=== PATIENT | male | born 1955 | race Caucasian/White ===

== ENCOUNTER 2016-09-05 04:12 | Inpatient (IN) | payer BC ==
[~2016-09-05] VITALS: Ht 182.9 cm; Wt 120.1 kg
[~2016-09-05 04:12] MED LIST: AMLO-114 PO; CARV6.252 PO; GABA-113 PO; INSUINJ4 SQ; LISI40TA PO; MULT-506 PO; OMEG10007 PO; ROSU20TA PO; TRAM-10 PO
[2016-09-05] MEDS ORDERED: LABETALOL HCL IV 5 MG/ML 20ML IV STA (04:20)
--- NOTE | 2016-09-05 04:26 | EMERGENCY ROOM VISIT NOTE ---
History Report prepared by Luis: Suzie Valera Under the Supervision of: Dr. Ap Ly M.D. First contact with patient: 04:14 Stated Complaint: SHORTNESS OF BREATH History of Present Illness The patient is a 61 year old male who presents to the Emergency Room with complaints of persistent shortness of breath that began prior to arrival. The patient states that he woke this morning with shortness of breath. He additionally associates chest pressure with his symptoms today. The patient states that over the last several months he has been experiencing increased bilateral lower extremity swelling. He states that when his symptoms began this morning he began pacing around. The patient states that he did not feel better so he called EMS. Upon arrival, EMS reports that the patient was diaphoretic, short of breath, and hypoxic. EMS reports that the patient was given aspirin, nitroglycerin and placed on oxygen which gave him complete resolution of his symptoms. The patient notes that he recently lost weight. He denies any increased abdominal distension. EMS reports a low-grade fever of 99.3 degrees Fahrenheit. The patient denies any alcohol consumption. Source of History: patient, EMS Onset: prior to arrival Position: other (global) Quality: other (shortness of breath) Timing: other (persistent) Modifying Factors (Relieving): oxygen, other (aspirin, nitroglycerin) Associated Symptoms: + chest pain (pressure), + fevers Note: Associated Symptoms: hypoxic, increased bilatearl lower extremity swelling Review of Systems See HPI for pertinent positives & negatives. A total of 10 systems reviewed and were otherwise negative. Past Medical & Surgical Medical Problems: (1) Staphylococcal infectious disease Family History Diabetes mellitus Social History Smoking Status: Never Smoker Marital Status: Housing Status: lives with significant other Occupation Status: employed Current/Historical Medications Scheduled Amlodipine (Norvasc), 10 MG PO QAM Aspirin (Aspirin Chewable), 81 MG PO QAM Carvedilol (Coreg), 25 MG PO BID Chlorthalidone (Hygroton), 25 MG PO DAILY Insulin Glargine (Lantus), 40 UNITS SC AMPM Insulin Lispro (Human) (Humalog Kwikpen), 6-8 UNITS SQ AMPM Lisinopril (Zestril), 40 MG PO QAM Scheduled PRN Tramadol (Ultram), 100 MG PO TID PRN for Pain Allergies Coded Allergies: No Known Allergies (Unverified , 09/05/16) Physical Exam Vital Signs Date Time Temp Pulse Resp B/P Pulse Ox O2 Delivery O2 Flow Rate FiO2 09/05/16 04:46 66 22 166/64 96 Nasal Cannula 2.0 09/05/16 04:41 81 09/05/16 04:32 78 17 182/70 99 Nasal Cannula 2.0 09/05/16 04:17 36.9 79 20 200/89 99 Nasal Cannula 2.0 09/05/16 04:17 91 Room Air 09/05/16 04:17 97 Nasal Cannula 2.0 Physical Exam GENERAL: Patient is well appearing and in minimal distress. HEENT: No acute trauma, normocephalic atraumatic, mucous membranes moist, no nasal congestion, no scleral icterus. NECK: No stridor, no adenopathy, no meningismus, trachea is midline. LUNGS: Decreased breath sounds bilaterally. No dyspnea. No wheeze, no rhonchi. HEART: Regular rate and rhythm. No murmurs, rubs, gallops appreciated. ABDOMEN: Soft, nontender, bowel sounds positive, no masses appreciated, no peritonitis. BACK: No midline tenderness, no CVA tenderness EXTREMITIES: 3+ pitting edema bilateral lower legs. Normal motion all extremities, no cyanosis. NEUROLOGIC: Alert and oriented, no acute motor or sensory deficits, no focal weakness, cranial nerves grossly intact. SKIN: No rash, no jaundice, no diaphoresis. Medical Decision & Procedures ER Provider Diagnostic Interpretation: 1 view chest x-ray: diffuse pulmonary edema. Laboratory Results 09/05/16 04:20 Red Blood Count 4.17, Mean Corpuscular Volume 98.1, Mean Corpuscular Hemoglobin 32.1, Mean Corpuscular Hemoglobin Concent 32.8, Mean Platelet Volume 9.6, Neutrophils (%) (Auto) 76.8, Lymphocytes (%) (Auto) 9.9, Monocytes (%) (Auto) 7.3, Eosinophils (%) (Auto) 5.7, Basophils (%) (Auto) 0.2, Neutrophils # (Auto) 10.26, Lymphocytes # (Auto) 1.32, Monocytes # (Auto) 0.98, Eosinophils # (Auto) 0.76, Basophils # (Auto) 0.03 09/05/16 04:20 Test 09/05/16 04:20 09/05/16 05:00 09/05/16 05:11 White Blood Count 13.37 K/uL (4.8-10.8) Red Blood Count 4.17 M/uL (4.7-6.1) Hemoglobin 13.4 g/dL (14.0-18.0) Hematocrit 40.9 % (42-52) Mean Corpuscular Volume 98.1 fL (80-100) Mean Corpuscular Hemoglobin 32.1 pg (25-34) Mean Corpuscular Hemoglobin Concent 32.8 g/dl (32-36) Platelet Count 388 K/uL (130-400) Mean Platelet Volume 9.6 fL (7.4-10.4) Neutrophils (%) (Auto) 76.8 % Lymphocytes (%) (Auto) 9.9 % Monocytes (%) (Auto) 7.3 % Eosinophils (%) (Auto) 5.7 % Basophils (%) (Auto) 0.2 % Neutrophils # (Auto) 10.26 K/uL (1.4-6.5) Lymphocytes # (Auto) 1.32 K/uL (1.2-3.4) Monocytes # (Auto) 0.98 K/uL (0.11-0.59) Eosinophils # (Auto) 0.76 K/uL (0-0.5) Basophils # (Auto) 0.03 K/uL (0-0.2) RDW Standard Deviation 49.5 fL (36.4-46.3) RDW Coefficient of Variation 13.9 % (11.5-14.5) Immature Granulocyte % (Auto) 0.1 % Immature Granulocyte # (Auto) 0.02 K/uL (0.00-0.02) Red Blood Cell Morphology Unremarkable Prothrombin Time 10.0 SECONDS (9.0-12.0) Prothromb Time International Ratio 0.9 (0.9-1.1) Activated Partial Thromboplast Time 27.4 SECONDS (21.0-31.0) Partial Thromboplastin Ratio 1.1 Est Creatinine Clear Calc Drug Dose 45.7 ml/min Estimated GFR () 34.0 Estimated GFR (Non- 29.3 BUN/Creatinine Ratio 17.6 (10-20) Calcium Level 8.7 mg/dl (8.5-10.1) Total Creatine Kinase 156 U/L (39-308) Creatine Kinase MB 1.9 ng/ml (0.5-3.6) Creatine Kinase MB Ratio 1.2 (0-3.0) Troponin I < 0.015 ng/ml (0-0.045) Pro-B-Type Natriuretic Peptide 1607 pg/ml (0-900) Urine Color YELLOW Urine Appearance CLEAR (CLEAR) Urine pH 6.0 (4.5-7.5) Urine Specific [place] 1.015 (1.000-1.030) Urine Protein 3+ (NEG) Urine Glucose (UA) TRACE (NEG) Urine Ketones NEG (NEG) Urine Occult Blood TRACE (NEG) Urine Nitrite NEG (NEG) Urine Bilirubin NEG (NEG) Urine Urobilinogen NEG (NEG) Urine Leukocyte Esterase NEG (NEG) Urine WBC (Auto) 1-5 /hpf (0-5) Urine RBC (Auto) 0-4 /hpf (0-4) Urine Hyaline Casts (Auto) 1-5 /lpf (0-5) Urine Epithelial Cells (Auto) 20-30 /lpf (0-5) Urine Bacteria (Auto) NEG (NEG) Bedside Hemoglobin 13.3 g/dl (14.0-18.0) Bedside Hematocrit 39 % (42-52) Bedside Sodium 141 mEq/L (135-144) Bedside Potassium 7.6 mEq/L (3.3-5.0) Bedside Chloride 117 mEq/L (101-112) Bedside Total CO2 17 mEq/l (24-31) Anion Gap 16.0 mmol/L (16-25) Bedside Blood Urea Nitrogen 39 mg/dl (7-18) Bedside Creatinine 2.0 mg/dl (0.6-1.3) Bedside Glucose (other) 146 mg/dl (70-99) Bedside Ionized Calcium (Toma) 1.19 mmol/l (1.12-1.32) Laboratory results as reviewed by me. Medications Administered Medications (Trade) Dose Ordered Sig/Kushal Route Start Time Stop Time Status Last Admin Dose Admin Labetalol HCl (Normodyne IV) 10 mg NOW STAT IV 09/05/16 04:20 09/05/16 04:22 DC 09/05/16 04:33 10 MG Nitroglycerin (Nitroglycerin 2% Oint) 1 inch NOW ONCE EXT 09/05/16 04:45 09/05/16 04:46 DC 09/05/16 05:02 1 INCH Dextrose (Dextrose 50% 50ML Syringe) 50 ml NOW STAT IV 09/05/16 05:10 09/05/16 05:14 DC 09/05/16 05:31 50 ML Sodium Bicarbonate (Sodium Bicarbonate 8.4% Inj) 50 ml NOW STAT IV 09/05/16 05:10 09/05/16 05:14 DC 09/05/16 05:30 50 ML Calcium Gluconate (Calcium Gluconate 10%) 1,000 mg NOW STAT IV 09/05/16 05:10 09/05/16 05:14 DC 09/05/16 05:30 1,000 MG Sodium Polystyrene Sulfonate (Kayexalate Susp) 30 gm NOW STAT PO 09/05/16 05:10 09/05/16 05:14 DC 09/05/16 05:32 30 GM ECG Indication: SOB/dyspnea Rate (beats per minute): 83 Rhythm: normal sinus Findings: peaked T-waves, no acute ischemic change, no ectopy ED Course 0415: The patient was evaluated in room A3. A complete history and physical exam was performed. 0420: Ordered Labetalol HCl 10 mg IV. 0445: Ordered Nitroglycerin 1 inch EXT. 0450: I reevaluated the patient and he is feeling better and his blood pressure is 160 mmHg. 0510: I reevaluated the patient and he is feeling well. I discussed the exam findings with him and I discussed the treatment plan. He verbalized complete understanding and agreement. He is going to be evaluated for further treatment. Ordered Kayexalate Susp 30 gm PO, Calcium Gluconate 1000 mg IV, Sodium Bicarbonate 50 ml IV, Insulin Human Regular 10 units IV, Dextrose 50 ml IV. 0519: I discussed the patients case with Dr. Monaco [facility]. He is going to evaluate the patient for further treatment. Ordered Lasix Inj 80 mg IV. Medical Decision Differential: Infectious, Reactive Airway Disease, Pneumonia, Pneumothorax, COPD , CHF, ACS, Pulmonary Embolism, MSK, GI, Dissection, amongst other etiologies entertained. 61 yr old male with history of DM and HTN arrives for evaluation of CP and SHOB. EMS note he was sating in 70s, diaphoretic and severely ill appearing with confusion on their arrival. Symptoms rapidly improved with ASA, SLNTG, and NC O2. On arrival without any complaints. Severely HTN thus given Labetalol with excellent improvement. EKG consistent with HyperKalemia and labs comfirm this. Mild renal failure from baseline. CXR consistent with early pulm edema. Given insulin, dextrose, bicarb, calcium and kayelalate for hyperK. Started Nitro paste for pulm edema given how well single SLNTG worked for EMS. After discussion with hospitalist 80 mg IV Lasix was ordered. I discussed the risks of worsening condition, conversion to severe renal failure, possibility of need for dialysis, and risks of cardiac arrhythmias with patient and and they agree to aggressive treatment. Patient with reported low grade fever by EMS though here with normal temp, no wbc elevation and CXR without obvious infiltrate under pulm edema. UA clear. Does have sinus congestion but will hold on treating this in setting of other emergent issues. Consults Time Called: [phone] Consulting Physician: JUAQUIN James Returned Call: [phone] I discussed the patients case with JUAQUIN James. He is going to evaluate the patient for further treatment. Impression Primary Impression: Hyperkalemia Additional Impressions: Acute renal failure Pulmonary edema Scribe Attestation The scribe's documentation has been prepared under my direction and personally reviewed by me in its entirety. I confirm that the note above accurately reflects all work, treatment, procedures, and medical decision making performed by me. Departure Information Dispostion Being Evaluated By Hospitalist Referrals Ana Paula Mccollum DO (PCP) Problem Qualifiers Additional Impressions: Acute renal failure Acute renal failure type: unspecified Qualified Codes: N17.9 - Acute kidney failure, unspecified Pulmonary edema Chronicity: acute Qualified Codes: J81.0 - Acute pulmonary edema
[2016-09-05 04:30] LABS: HEMATOCRIT 40.9 % (42-52); MEAN CELL VOLUME 98.1 fL (80-100); MEAN CORPUSCULAR HEMOGLOBIN 32.1 pg (25-34); MEAN CORPUSCULAR HGB CONC 32.8 g/dl (32-36); MEAN PLATELET VOLUME 9.6 fL (7.4-10.4); PLATELET COUNT 388 K/uL (130-400); RED BLOOD COUNT 4.17 M/uL (4.7-6.1); WHITE BLOOD COUNT 13.37 K/uL (4.8-10.8)
[2016-09-05] MEDS ORDERED: HYG/25 PO (04:42)
[2016-09-05] MEDS ORDERED: NITROGLYCERIN OINT 2% 1GM PACKET EXT ONE (04:45)
[2016-09-05 04:46] LABS: INR 0.9 (0.9-1.1); PARTIAL THROMBOPLASTIN RATIO 1.1
[2016-09-05 05:06] LABS: BLOOD UREA NITROGEN 41 mg/dl (7-18); BUN/CREATININE RATIO 17.6 (10-20); CALCIUM 8.7 mg/dl (8.5-10.1); CARBON DIOXIDE 23 mmol/L (21-32); CHLORIDE 115 mmol/L (98-107); CKMB/CK RATIO 1.2 (0-3.0); GLUCOSE 132 mg/dl (70-99); POTASSIUM 6.9 mmol/L (3.5-5.1); SODIUM 143 mmol/L (136-145)
[2016-09-05] MEDS ORDERED: SODIUM BICARB 8.4% INJ 50 MEQ/50 ML SYR IV STA (05:10)
[2016-09-05] MEDS ORDERED: DEXTROSE 50% 50 ML SYR IV STA (05:10)
[2016-09-05] MEDS ORDERED: SODIUM POLYST. SULF SUSP 15G/60ML PO STA ×2 (05:10→16:38)
[2016-09-05] MEDS ORDERED: CALCIUM GLUCONATE 10% 10 ML VIAL IV STA (05:10)
[2016-09-05] MEDS ORDERED: NovoLIN-R INSULIN PER UNIT CHARGE IV STA (05:10)
[2016-09-05 05:18] LABS: URINE APPEARANCE CLEAR (CLEAR); URINE BILIRUBIN NEG (NEG); URINE COLOR YELLOW; URINE EPITHELIAL CELL AUTO 20-30 /lpf (0-5); URINE NITRITE NEG (NEG); URINE SPECIFIC GRAVITY 1.015 (1.000-1.030); UROBILINOGEN NEG (NEG); ZZUR CULT IF INDIC CLEAN CATCH NO
[2016-09-05] MEDS ORDERED: FUROSEMIDE 40 MG/4 ML VIAL IV STA (05:19)
[2016-09-05 05:20] LABS: MANUAL MICROSCOPIC REQUIRED? NO; REVIEW REQ? NO
[2016-09-05 05:20] LABS: BASO % 0.2 %; BASO ABS # 0.03 K/uL (0-0.2); COMPLETE YES; EOS % 5.7 %; IG% 0.1 %; LYMPH % 9.9 %; LYMPH ABS # 1.32 K/uL (1.2-3.4); MONO % 7.3 %; NEUT % 76.8 %
[2016-09-05 05:24] LABS: ISTAT HEMOGLOBIN 13.3 g/dl (14.0-18.0); ISTAT IONIZED CALCIUM 1.19 mmol/l (1.12-1.32)
[2016-09-05] MEDS ORDERED: HydrALAZINE HCL 20 MG/ML VIAL IV. STA (06:07)
[2016-09-05] MEDS ORDERED: MAGNESIUM HYDROXIDE SUSP 30 ML UDC PO PRN (06:15)
[2016-09-05] MEDS ORDERED: ACETAMINOPHEN 325 MG TAB PO PRN (06:15)
[2016-09-05] MEDS ORDERED: NITROGLYCERIN 0.4 MG SL PER TAB CHARGE SL PRN (06:15)
[2016-09-05] MEDS ORDERED: ONDANSETRON INJ 2 MG/ML 2 ML VIAL IV PRN (06:15)
[2016-09-05] MEDS ORDERED: ALUMINUM/MAGNESIUM/SIMETH (MAALOX MAX) 30 ML UDC PO PRN (06:15)
[2016-09-05] MEDS ORDERED: TRAMADOL HCL 50 MG TAB PO PRN (06:15)
--- NOTE | 2016-09-05 06:34 | History and Physical ---
History & Physical Date & Time of Service: Sep 05, 2016 at 06:11 Chief Complaint: Shortness Of Breath Primary Care Physician: Ana Paula Mccollum DO History of Present Illness Source: patient, family 61-year-old male with past medical history of hypertension, diabetes presented to the ER with complaints of persistent shortness of breath which woke him up this morning. He continued to feel short of breath associated with some chest pressure but denied any palpitations or dizziness. EMS was called after he became diaphoretic with worsening shortness of breath and after administration of aspirin and nitroglycerin he began to feel better. He had noticed that he had increased bilateral lower extremity swelling that started a few weeks ago and also had noticed increase work of breathing while walking uphill. He denied any orthopnea, proximal nocturnal dyspnea, cough prior to this episode. He also stated that he had uncontrolled blood pressure more than 220/150 a few weeks ago and he had visited his PCP who added chlorthalidone to his regimen of amlodipine, lisinopril, carvedilol. Denies any headaches, weakness, numbness or tingling. Currently denies any shortness of breath, palpitations. He denies any history of heart disease, alcohol abuse, he did have a fever earlier this week with URI symptoms. Past Medical/Surgical History Hypertension, diabetes Family History Diabetes mellitus Social History Smoking Status: Never Smoker Smokeless Tobacco Use: Yes (chews about a can per day) Marital Status: Occupational Status: employed Immunizations History of Influenza Vaccine: Yes History of Tetanus Vaccine?: Unknown History of Pneumococcal: Yes History of Hepatitis B Vaccine: Unknown Allergies Coded Allergies: No Known Allergies (Unverified , 09/05/16) Home Medications Scheduled Amlodipine (Norvasc), 10 MG PO QAM Aspirin (Aspirin Chewable), 81 MG PO QAM Carvedilol (Coreg), 25 MG PO BID Chlorthalidone (Hygroton), 25 MG PO DAILY Insulin Glargine (Lantus), 40 UNITS SC AMPM Insulin Lispro (Human) (Humalog Kwikpen), 6-8 UNITS SQ AMPM Lisinopril (Zestril), 40 MG PO QAM Scheduled PRN Tramadol (Ultram), 100 MG PO TID PRN for Pain Physical Exam Vital Signs Date Time Temp Pulse Resp B/P Pulse Ox O2 Delivery O2 Flow Rate FiO2 4/17/17 04:46 66 22 166/64 96 Nasal Cannula 2.0 09/05/16 04:41 81 09/05/16 04:32 78 17 182/70 99 Nasal Cannula 2.0 09/05/16 04:17 36.9 79 20 200/89 99 Nasal Cannula 2.0 09/05/16 04:17 91 Room Air 09/05/16 04:17 97 Nasal Cannula 2.0 General Appearance: WD/WN, no apparent distress, + obese Head: normocephalic Eyes: normal inspection ENT: normal ENT inspection, hearing grossly normal Neck: supple Respiratory/Chest: chest non-tender, no respiratory distress, no accessory muscle use, + crackles (bilaterally) Cardiovascular: regular rate, rhythm, no murmur Abdomen/GI: normal bowel sounds, non tender, soft Extremities/Musculoskelatal: + pedal edema (3+) Neurologic/Psych: alert, normal mood/affect, oriented x 3 Skin: normal color Diagnostics Laboratory Results Results Past 24 Hours Test 09/05/16 04:20 09/05/16 05:00 09/05/16 05:11 Range/Units White Blood Count 13.37 4.8-10.8 K/uL Red Blood Count 4.17 4.7-6.1 M/uL Hemoglobin 13.4 14.0-18.0 g/dL Hematocrit 40.9 42-52 % Mean Corpuscular Volume 98.1 80-100 fL Mean Corpuscular Hemoglobin 32.1 25-34 pg Mean Corpuscular Hemoglobin Concent 32.8 32-36 g/dl Platelet Count 388 130-400 K/uL Mean Platelet Volume 9.6 7.4-10.4 fL Neutrophils (%) (Auto) 76.8 % Lymphocytes (%) (Auto) 9.9 % Monocytes (%) (Auto) 7.3 % Eosinophils (%) (Auto) 5.7 % Basophils (%) (Auto) 0.2 % Neutrophils # (Auto) 10.26 1.4-6.5 K/uL Lymphocytes # (Auto) 1.32 1.2-3.4 K/uL Monocytes # (Auto) 0.98 0.11-0.59 K/uL Eosinophils # (Auto) 0.76 0-0.5 K/uL Basophils # (Auto) 0.03 0-0.2 K/uL RDW Standard Deviation 49.5 36.4-46.3 fL RDW Coefficient of Variation 13.9 11.5-14.5 % Immature Granulocyte % (Auto) 0.1 % Immature Granulocyte # (Auto) 0.02 0.00-0.02 K/uL Red Blood Cell Morphology Unremarkable Prothrombin Time 10.0 9.0-12.0 SECONDS Prothromb Time International Ratio 0.9 0.9-1.1 Activated Partial Thromboplast Time 27.4 21.0-31.0 SECONDS Partial Thromboplastin Ratio 1.1 Sodium Level 143 136-145 mmol/L Potassium Level 6.9 3.5-5.1 mmol/L Chloride Level 115 98-107 mmol/L Carbon Dioxide Level 23 21-32 mmol/L Anion Gap 5.0 16.0 16-25 mmol/L Blood Urea Nitrogen 41 7-18 mg/dl Creatinine 2.30 0.60-1.40 mg/dl Est Creatinine Clear Calc Drug Dose 45.7 ml/min Estimated GFR () 34.0 Estimated GFR (Non- 29.3 BUN/Creatinine Ratio 17.6 10-20 Random Glucose 132 70-99 mg/dl Calcium Level 8.7 8.5-10.1 mg/dl Total Creatine Kinase 156 39-308 U/L Creatine Kinase MB 1.9 0.5-3.6 ng/ml Creatine Kinase MB Ratio 1.2 0-3.0 Troponin I < 0.015 0-0.045 ng/ml Pro-B-Type Natriuretic Peptide 1607 0-900 pg/ml Urine Color YELLOW Urine Appearance CLEAR CLEAR Urine pH 6.0 4.5-7.5 Urine Specific [place] 1.015 1.000-1.030 Urine Protein 3+ NEG Urine Glucose (UA) TRACE NEG Urine Ketones NEG NEG Urine Occult Blood TRACE NEG Urine Nitrite NEG NEG Urine Bilirubin NEG NEG Urine Urobilinogen NEG NEG Urine Leukocyte Esterase NEG NEG Urine WBC (Auto) 1-5 0-5 /hpf Urine RBC (Auto) 0-4 0-4 /hpf Urine Hyaline Casts (Auto) 1-5 0-5 /lpf Urine Epithelial Cells (Auto) 20-30 0-5 /lpf Urine Bacteria (Auto) NEG NEG Bedside Hemoglobin 13.3 14.0-18.0 g/dl Bedside Hematocrit 39 42-52 % Bedside Sodium 141 135-144 mEq/L Bedside Potassium 7.6 3.3-5.0 mEq/L Bedside Chloride 117 101-112 mEq/L Bedside Total CO2 17 24-31 mEq/l Bedside Blood Urea Nitrogen 39 7-18 mg/dl Bedside Creatinine 2.0 0.6-1.3 mg/dl Bedside Glucose (other) 146 70-99 mg/dl Bedside Ionized Calcium (Toma) 1.19 1.12-1.32 mmol/l Diagnostic Radiology Chest x-ray: Diffuse pulmonary edema EKG Normal sinus rhythm, Peaked T waves Impression Assessment and Plan Documented By: Viktor Monaco 61-year-old male with past medical history of hypertension, diabetes presented to the ER with complaints of persistent shortness of breath which woke him up this morning. He has no prior history of CHF, coronary artery disease but has been having issues with uncontrolled hypertension . Hyperkalemia: - EKG: Normal sinus rhythm with peaked T waves - Potassium on presentation 6.8, on repeat check 7.6 - Received calcium gluconate, regular insulin with dextrose, Kayexalate, 80 mg IV Lasix, sodium bicarbonate in the ER -Recheck potassium/PRP in 30 minutes - Low potassium diet - CK ordered Monitor in telemetry New onset CHF: - Chest x-ray: Diffuse pulmonary edema - BNP 1600 - Strict I's and O's - Daily weights - Echo ordered - Cardiology consult Hypertensive urgency: - Blood pressure on presentation 200/89 - Received 10 mg of IV labetalol - 10 mg hydralazine - Restart Norvasc, carvedilol. Hold lisinopril, chlorthalidone Diabetes: - Hold home insulin - Sliding-scale insulin MARK: - Creatinine on presentation at 2.3 - Likely secondary to decreased perfusion - Monitor creatinine DVT prophylaxis heparin subcutaneous Full code Disposition: Admitted to telemetry, monitor K levels Resident Physician Supervision Note: I was present with [Name of resident] during the history and exam. I discussed the case with the resident and agree with the findings and plan as documented in the note. Any exceptions or clarifications are listed here: 61 y/o M presenting with SOB and was initially confused when found by EMS - HTN with a systolic pressure of 225, pulmonary edema and ARF, hyperkalemia noted on arrival to the ER - denies Hx of any of above Improved following treatment in the ER OE AAO x 3 S1,2 R decreased air at bases Distended abd , NT , BS+ + edema peaked Ts on EKG P: Treated emergently for hyperK in ER - includes Kyexelate and Lasix Lasix provided or pulm edema BP treated w/NTG , Hydralazine, Lasix Echo and repeat labs pending Level of Care Telemetry Resuscitation Status FULL RESUSCITATION VTE Prophylaxis VTE Risk Assessment Done? Y/N: Yes Risk Level: Moderate Given or contraindicated: Unfractionated heparin SQ Resident Tracking Resident Involvement: Resident Care Provided Care Provided: Adult Hospital Medicine
[2016-09-05 07:00] VITALS: BP 166/99; PULSE 81; TEMP 36.5; O2SAT 94; BMI 37.7
[2016-09-05] MEDS ORDERED: HydrALAZINE HCL 20 MG/ML VIAL IV. PRN (07:00)
--- NOTE | 2016-09-05 07:00 | DIAGNOSTIC IMAGING REPORT ---
CHEST ONE VIEW PORTABLE CLINICAL HISTORY: Chest Pain dyspnea COMPARISON STUDY: 09/27/2012 FINDINGS: Increased prominence of pulmonary vasculature. No focal infiltrate. Mild stable cardiomegaly. Prior right shoulder arthroplasty. IMPRESSION: Mild congestive failure Electronically signed by: Tj Paris M.D. 09/05/2016 6:58 AM Dictated Date/Time: 09/05/2016 6:56 AM
[2016-09-05] MEDS ORDERED: GLUCOSE 40% GEL 15 GM TUBE PO PRN (07:15)
[2016-09-05] MEDS ORDERED: GLUCOSE 10 TABS/TUBE PO PRN (07:15)
[2016-09-05] MEDS ORDERED: GLUCAGON FOR INJ 1 MG VIAL SQ PRN (07:15)
[2016-09-05] MEDS ORDERED: DEXTROSE 50% 50 ML SYR IV PRN (07:15)
[2016-09-05] MEDS: INSULIN ASPART 100 UNITS/ML 3 ML PEN SC SCH ×4 (07:41→20:28)
[2016-09-05 08:18] LABS: BUN/CREATININE RATIO 17.5 (10-20); CALCIUM 9.3 mg/dl (8.5-10.1); CREATININE 2.3 mg/dl (0.60-1.40); MAGNESIUM 2.4 mg/dl (1.8-2.4); POTASSIUM 6.3 mmol/L (3.5-5.1)
[2016-09-05] MEDS: ASPIRIN 81 MG ECTAB PO SCH (08:21)
[2016-09-05] MEDS: AMLODIPINE BESYLATE 5 MG TAB PO SCH (08:21)
[2016-09-05] MEDS: CARVEDILOL 25 MG TAB PO SCH ×2 (08:21→20:29)
[2016-09-05] MEDS: HEPARIN SOD 5000 UNIT/0.5 ML CARP SQ SCH ×2 (08:22→20:31)
[2016-09-05] MEDS: NITROGLYCERIN OINT 2% 1GM PACKET EXT SCH ×3 (08:22→21:16)
--- NOTE | 2016-09-05 10:51 | ECHOCARDIOGRAM REPORT ---
*NOTICE TO RECEIVING DEMOCRAT AGENCY This information is strictly Confidential and protected under [place] law. [place] law prohibits you from making any further disclosure of this information unless further disclosure is expressly permitted by the written consent of the person to whom it pertains or is authorized by law. A general authorization for the release of medical or other information is not sufficient for this purpose. Hospital accepts no responsibility if the information is made available to any other person, INCLUDING THE PATIENT. Interpretation Summary * Name: EDER LARA Study Date: 09/05/2016 09:37 AM BP: 166/99 mmHg * Patient Location: C.2T\S\S242\S\2 HR: 67 * : 1955 (M/d/yyyy) Gender: Male Height: 72 in * Age: 61 yrs Ethnicity: [place] Weight: 278 lb * Ordering Physician: Carla Rivera * Referring Physician: Self, Referred * Performed By: Suzie Cobos RDCS * * Reason For Study: CHF * BSA: 2.5 m2 * -- Conclusions -- * 1. Normal LV size. Mild concentric LVH. * 2. Normal LV systolic function. LVEF 60-65%. No regional wall motion abnormalities. * 3. Mildly dilated RV. Normal RV function. * 4. No significant valvular pathology. * 5. Grade II diastolic dysfunction. * 6. Normal estimated RA pressure. * 7. No prior studies for comparison. Procedure Details * A contrast injection of Definity was performed to improve assessment of LV function. * Contrast was injected into an intravenous site in the left arm. * One vial of Definity ultrasound contrast was diluted in normal saline to a total volume of 10 ml. A total of '2' ml of solution was administered during imaging. * Lot # [id number] of Definity utilized for procedure. * Expiration date 1 JUL 09. * The attending nurse who injected the contrast agent was MARIBELL SHIN RN. Left Ventricle * The left ventricle is grossly normal size. * There is mild concentric left ventricular hypertrophy. * Ejection Fraction = 60-65%. * No regional wall motion abnormalities noted. Right Ventricle * The right ventricle is mildly dilated. * The right ventricular systolic function is normal as assessed by tricuspid annular plane systolic excursion (TAPSE) (normal >1.5 cm). Atria * The left atrium is mildly dilated. * Right atrial size is normal. * No ASD detected; PFO is not assessed. Mitral Valve * The mitral valve is grossly normal. * There is mild mitral annular calcification. * There is no mitral valve stenosis. * There is trace mitral regurgitation. Tricuspid Valve * The tricuspid valve is not well visualized, but is grossly normal. * There is no tricuspid stenosis. * Significant tricuspid regurgitation is absent. Aortic Valve * The aortic valve opens well. * The aortic valve is trileaflet. * No hemodynamically significant valvular aortic stenosis. * There is no significant aortic regurgitation. Pulmonic Valve * The pulmonary valve is inadequately visualized, but the Doppler data is adequate for interpretation. * There is no pulmonic valvular stenosis. * Trace pulmonic valvular regurgitation. Great Vessels * The aortic root and proximal ascending aorta are normal sized. * No Doppler or imaging evidence of an aortic coarctation. Pericardium/Pleural * There is no pericardial effusion. Great Vessels * Normal inferior vena cava size and collapsability with sniff indicates a normal right atrial pressure of 3 mmHg Left Ventricular Diastolic Function * Diastolic dysfunction, Grade II (pseudonormalization pattern). MMode 2D Measurements and Calculations IVSd 1.1 cm IVSs 1.6 cm LVIDd 5.2 cm LVIDs 3.2 cm LVPWd 1.2 cm LVPWs 2.2 cm IVS/LVPW 0.98 FS 38.6 % EDV(Teich) 128.7 ml ESV(Teich) 40.4 ml EF(Teich) 68.6 % EDV(cubed) 139.4 ml ESV(cubed) 32.2 ml EF(cubed) 76.9 % % IVS thick 39.0 % % LVPW thick 86.1 % LV mass(C)d 233.1 grams LV mass(C)dI 95.1 grams/m\S\2 LV mass(C)s 249.6 grams LV mass(C)sI 101.8 grams/m\S\2 SV(Teich) 88.3 ml SI(Teich) 36.0 ml/m\S\2 SV(cubed) 107.2 ml SI(cubed) 43.8 ml/m\S\2 Ao root diam 3.5 cm Ao root area 9.7 cm\S\2 LA dimension 4.6 cm LA/Ao 1.3 LVAd ap4 43.9 cm\S\2 LVLd ap4 10.1 cm EDV(MOD-sp4) 158.0 ml LVAs ap4 24.7 cm\S\2 LVLs ap4 8.4 cm ESV(MOD-sp4) 64.2 ml EF(MOD-sp4) 59.4 % LVAd ap2 31.4 cm\S\2 LVLd ap2 9.0 cm EDV(MOD-sp2) 89.9 ml LVAs ap2 15.7 cm\S\2 LVLs ap2 7.8 cm ESV(MOD-sp2) 26.3 ml EF(MOD-sp2) 70.7 % SV(MOD-sp4) 93.8 ml SI(MOD-sp4) 38.3 ml/m\S\2 SV(MOD-sp2) 63.6 ml SI(MOD-sp2) 26.0 ml/m\S\2 Doppler Measurements and Calculations MV E max marti 107.8 cm/sec MV A max marti 101.7 cm/sec MV E/A 1.1 MV dec time 0.14 sec Ao V2 max 149.4 cm/sec Ao max PG 8.9 mmHg Ao max PG (full) 3.2 mmHg LV V1 max PG 5.7 mmHg LV V1 max 119.4 cm/sec
[2016-09-05] MEDS ORDERED: PERFLUTREN LIPID MICROSPHERE (DEFINITY) IV ONE (11:09)
--- NOTE | 2016-09-05 11:18 | CARDIOLOGY CONSULTATION ---
DATE OF CONSULTATION: 09/05/2016 CONSULTATION REQUESTED BY: Dr. Monaco. REASON FOR CONSULTATION: Shortness of breath, question new onset heart failure. HISTORY OF PRESENT ILLNESS: Mr. Rodriguez is a 61-year-old man with a history of poorly controlled hypertension, poorly controlled insulin-dependent diabetes, chronic kidney disease, hypothyroidism who presented last night in the setting of chest tightness and worsening shortness of breath. The patient states that over the last several weeks, he has noticed worsening shortness of breath with some mild associated chest tightness when walking up a hill less than 100 yards. Walking on level surfaces he feels like he has been in his usual state of health. His daughter notes that he has been more fatigued as of late though. The day prior to admission he had been feeling okay. He ate a large Easter meal, then that night while attempting to go to sleep became acutely short of breath with what he describes as chest pressure. Symptoms lasted for approximately 10 or 20 minutes while EMS was called. Symptoms were beginning to resolve by the time EMS got there and then felt much improved after he got sublingual nitroglycerin en route. Upon arrival, the patient was hypertensive, systolics in 200s, was satting in the 90s on 2 liters nasal cannula. Initial workup revealed hyperkalemia with a potassium to 7.6 and was treated emergently with bicarb and insulin for his potassium. In addition he was given IV hydralazine, labetalol and nitropatch was placed as well for his blood pressure. Subsequent blood pressures have trended down, now down in the 140s/70s. This morning, the patient states he feels well, he is more in his usual state of health without significant shortness of breath. Denies any recurrent chest pain. On telemetry, he no significant arrhythmias. PAST MEDICAL HISTORY: 1. Hypertension - malignant hypertension, prior outpatient visit with pressures up in the 240s, had not been taking his blood pressure agents up until approximately 3 weeks ago. 2. Diabetes. Last A1c 8.5. 3. Hypothyroidism, last TSH greater than 9. 4. History of osteomyelitis of his right tibia following meniscal surgery. 5. Prior rotator cuff repair of the right shoulder. FAMILY HISTORY: Mother had an WA in her 80s. No other history of premature coronary disease or sudden cardiac . SOCIAL HISTORY: Lives with his and his daughter. 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 Denies ever smoking tobacco, continues to use chewing tobacco. Denies significant alcohol use or illicit drugs. HOME MEDICATIONS: 1. Amlodipine 10 mg. 2. Aspirin 81. 3. Carvedilol 25 mg p.o. b.i.d. 4. Chlorthalidone 25. 5. Lantus 40 units subQ a.m. and p.m. 6. Lispro. 7. Lisinopril 40 mg. 8. Tramadol. ALLERGIES: No known drug allergies. REVIEW OF SYSTEMS: Ten point review of systems completed and otherwise negative or listed in HPI. PHYSICAL EXAMINATION: VITAL SIGNS: Temperature 36.5, pulse 81, blood pressure 166/99, he is satting 94% on room air. GENERAL: The patient appears comfortable in no acute distress. HEENT: Sclerae are anicteric. Oropharynx is clear. Mucous membranes are moist. NECK: Supple. He has minimal jugular venous dilation approximately 7-8. LUNGS: Clear except for decreased breath sounds at the right base. HEART: He has a regular rate and rhythm with no murmurs, rubs or gallops. ABDOMEN: Soft, nontender, nondistended with positive bowel sounds. EXTREMITIES: Warm. He has intact 2+ radial pulses, diminished DP and PT pulses. He has 1+ lower extremity edema to his shins bilaterally. He had intact capillary refill throughout. SKIN: Shows no significant rashes or lesions. NEUROLOGIC: Nonfocal. PSYCHIATRIC: He is alert and oriented x3. Mood and affect are appropriate. LABORATORY DATA: Sodium 141, potassium 6.3, bicarbonate of 23, BUN of 40, creatinine of 2.3. Troponin has been negative, less than 0.01, proBNP 1600. White blood cell count was 13.4, hemoglobin 13.4 and platelets of 388. INR of 0.9. UA with 3+ proteinuria. Otherwise, unremarkable. IMAGING: Chest x-ray shows mild pulmonary edema, no significant pleural effusions. Initial EKG shows sinus rhythm with ventricular rate of 83. He has peaked T waves throughout. Telemetry reviewed, sinus rhythm in the 70s and 80s. No significant events. Echo pending. IMPRESSION: 1. Acute shortness of breath, chest tightness. 2. Acute heart failure. 3. Acute on chronic renal insufficiency. 4. Poorly controlled hypertension. 5. Poorly controlled insulin-dependent diabetes. 6. Hyperkalemia with acute EKG changes. PLAN: The patient here with worsening shortness of breath, chest tightness over weeks, acutely worsened last night and found to be in acute heart failure on presentation in the setting of worsened acute on chronic renal insufficiency. Suspect that acute exacerbation is in part secondary to increased dietary salt intake, poorly controlled blood pressure as well as acute on chronic renal insufficiency. At present the patient is improved after improved blood pressure control and diuretics he received in the ED. Minimal residual congestion on exam. Suspect will need PRN diuretics on discharge. At this point, no evidence of an acute coronary syndrome. Would continue to trend troponins. Initial echocardiogram is pending and will follow up on results. Would repeat EKG and potassium later this morning with further treatment for hyperkalemia as necessary. Otherwise, I agree with current antihypertensives, would continue on antiplatelet therapy with aspirin and add a moderate intensity statin. We will continue to follow while the patient is in house. Thank you for allowing us to participate in the care of this patient. Please contact with any questions. GUSTABO
[2016-09-05 12:01] VITALS: BP 198/80; PULSE 72; TEMP 36.4; O2SAT 96
--- NOTE | 2016-09-05 13:44 | Family Medicine Progress Note ---
Progress Note Date of Service Sep 05, 2016. Subjective Pt evaluation today including: conversation w/ patient, conversation w/ family Patient feeling significantly better since admission. His SOB has improved, and he denies any further clamminess or chest tightness. He states he has not experienced any palpitations, nausea, headache or vision changes. He states his leg swelling is improved compared to when he last visited his PCP. His only other complaint at this time is frequent urination, likely secondary to the diuresis. Constitutional: No chills, No fever, No sweats, No weakness Eyes: No diplopia Respiratory: No cough, No shortness of breath, No wheezing Cardiovascular: No PND, No chest pain, No edema, No orthopnea, No palpitations Abdomen: No constipation, No diarrhea, No nausea, No pain, No vomiting Musculoskeletal: + swelling, No calf pain, No joint pain Male : + nocturia more than once/night, + urinary frequency, No dysuria, No hematuria, No incontinence, No slowing stream Objective Vital Signs Date Time Temp Pulse Resp B/P Pulse Ox O2 Delivery O2 Flow Rate FiO2 09/05/16 12:01 36.4 72 20 198/80 96 Room Air 09/05/16 12:00 Room Air 09/05/16 08:00 Room Air 09/05/16 07:00 36.5 81 20 166/99 94 Room Air 09/05/16 06:33 72 19 145/70 97 09/05/16 06:32 72 19 145/70 97 Nasal Cannula 2.0 09/05/16 06:01 75 16 177/76 95 Nasal Cannula 2.0 09/05/16 05:45 74 21 200/88 97 Nasal Cannula 2.0 09/05/16 05:32 72 16 186/79 97 Nasal Cannula 2.0 09/05/16 05:15 74 20 143/71 96 Nasal Cannula 2.0 09/05/16 05:01 69 18 163/69 96 Nasal Cannula 2.0 09/05/16 04:46 66 22 166/64 96 Nasal Cannula 2.0 09/05/16 04:41 81 09/05/16 04:32 78 17 182/70 99 Nasal Cannula 2.0 09/05/16 04:17 36.9 79 20 200/89 99 Nasal Cannula 2.0 09/05/16 04:17 91 Room Air 09/05/16 04:17 97 Nasal Cannula 2.0 Physical Exam General Appearance: WD/WN, no apparent distress ENT: hearing grossly normal, pharynx normal Neck: supple, no adenopathy, no JVD Respiratory/Chest: lungs clear, normal breath sounds, no respiratory distress, no accessory muscle use Cardiovascular: regular rate, rhythm, no edema, no JVD, no murmur Abdomen: normal bowel sounds, non tender, soft Extremities: non-tender, + pedal edema, + swelling Neurologic/Psychiatric: alert, normal mood/affect, oriented x 3 Skin: normal color, warm/dry, no rash Laboratory Results Results Past 24 Hours Test 09/05/16 04:20 09/05/16 05:00 09/05/16 05:11 09/05/16 07:06 Range/Units White Blood Count 13.37 4.8-10.8 K/uL Red Blood Count 4.17 4.7-6.1 M/uL Hemoglobin 13.4 14.0-18.0 g/dL Hematocrit 40.9 42-52 % Mean Corpuscular Volume 98.1 80-100 fL Mean Corpuscular Hemoglobin 32.1 25-34 pg Mean Corpuscular Hemoglobin Concent 32.8 32-36 g/dl Platelet Count 388 130-400 K/uL Mean Platelet Volume 9.6 7.4-10.4 fL Neutrophils (%) (Auto) 76.8 % Lymphocytes (%) (Auto) 9.9 % Monocytes (%) (Auto) 7.3 % Eosinophils (%) (Auto) 5.7 % Basophils (%) (Auto) 0.2 % Neutrophils # (Auto) 10.26 1.4-6.5 K/uL Lymphocytes # (Auto) 1.32 1.2-3.4 K/uL Monocytes # (Auto) 0.98 0.11-0.59 K/uL Eosinophils # (Auto) 0.76 0-0.5 K/uL Basophils # (Auto) 0.03 0-0.2 K/uL RDW Standard Deviation 49.5 36.4-46.3 fL RDW Coefficient of Variation 13.9 11.5-14.5 % Immature Granulocyte % (Auto) 0.1 % Immature Granulocyte # (Auto) 0.02 0.00-0.02 K/uL Red Blood Cell Morphology Unremarkable Prothrombin Time 10.0 9.0-12.0 SECONDS Prothromb Time International Ratio 0.9 0.9-1.1 Activated Partial Thromboplast Time 27.4 21.0-31.0 SECONDS Partial Thromboplastin Ratio 1.1 Sodium Level 143 136-145 mmol/L Potassium Level 6.9 3.5-5.1 mmol/L Chloride Level 115 98-107 mmol/L Carbon Dioxide Level 23 21-32 mmol/L Anion Gap 5.0 16.0 16-25 mmol/L Blood Urea Nitrogen 41 7-18 mg/dl Creatinine 2.30 0.60-1.40 mg/dl Est Creatinine Clear Calc Drug Dose 45.7 ml/min Estimated GFR () 34.0 Estimated GFR (Non- 29.3 BUN/Creatinine Ratio 17.6 10-20 Random Glucose 132 70-99 mg/dl Calcium Level 8.7 8.5-10.1 mg/dl Total Creatine Kinase 156 39-308 U/L Creatine Kinase MB 1.9 0.5-3.6 ng/ml Creatine Kinase MB Ratio 1.2 0-3.0 Troponin I < 0.015 0-0.045 ng/ml Pro-B-Type Natriuretic Peptide 1607 0-900 pg/ml Urine Color YELLOW Urine Appearance CLEAR CLEAR Urine pH 6.0 4.5-7.5 Urine Specific [place] 1.015 1.000-1.030 Urine Protein 3+ NEG Urine Glucose (UA) TRACE NEG Urine Ketones NEG NEG Urine Occult Blood TRACE NEG Urine Nitrite NEG NEG Urine Bilirubin NEG NEG Urine Urobilinogen NEG NEG Urine Leukocyte Esterase NEG NEG Urine WBC (Auto) 1-5 0-5 /hpf Urine RBC (Auto) 0-4 0-4 /hpf Urine Hyaline Casts (Auto) 1-5 0-5 /lpf Urine Epithelial Cells (Auto) 20-30 0-5 /lpf Urine Bacteria (Auto) NEG NEG Bedside Hemoglobin 13.3 14.0-18.0 g/dl Bedside Hematocrit 39 42-52 % Bedside Sodium 141 135-144 mEq/L Bedside Potassium 7.6 3.3-5.0 mEq/L Bedside Chloride 117 101-112 mEq/L Bedside Total CO2 17 24-31 mEq/l Bedside Blood Urea Nitrogen 39 7-18 mg/dl Bedside Creatinine 2.0 0.6-1.3 mg/dl Bedside Glucose (other) 146 70-99 mg/dl Bedside Ionized Calcium (T[place]) 1.19 1.12-1.32 mmol/l Bedside Glucose 116 70-99 mg/dl Test 09/05/16 07:15 09/05/16 11:13 09/05/16 13:09 Range/Units Sodium Level 145 141 136-145 mmol/L Potassium Level 6.3 6.3 3.5-5.1 mmol/L Chloride Level 115 111 98-107 mmol/L Carbon Dioxide Level 23 22 21-32 mmol/L Anion Gap 7.0 8.0 3-11 mmol/L Blood Urea Nitrogen 40 39 7-18 mg/dl Creatinine 2.30 2.10 0.60-1.40 mg/dl Est Creatinine Clear Calc Drug Dose 45.7 50.0 ml/min Estimated GFR () 34.0 38.0 Estimated GFR (Non- 29.3 32.7 BUN/Creatinine Ratio 17.5 18.7 10-20 Random Glucose 120 192 70-99 mg/dl Calcium Level 9.3 8.5 8.5-10.1 mg/dl Magnesium Level 2.4 1.8-2.4 mg/dl Total Creatine Kinase 154 39-308 U/L Bedside Glucose 138 70-99 mg/dl Total Bilirubin 0.2 0.2-1 mg/dl Direct Bilirubin < 0.1 0-0.2 mg/dl Aspartate Amino Transf (AST/SGOT) 10 15-37 U/L Alanine Aminotransferase (ALT/SGPT) 12 12-78 U/L Alkaline Phosphatase 134 45-117 U/L Troponin I < 0.015 0-0.045 ng/ml Total Protein 7.2 6.4-8.2 gm/dl Albumin 2.3 3.4-5.0 gm/dl Assessment and Plan 61 year old male with DM and HTN admitted with acute SOB, uncontrolled hypertension and hyperkalemia on a background of worsening LL edema requiring recent addition of chlorthalidone to medication regimen. Hyperkalemia - Peak K+ measured as 7.6 in the ER. Initial EKG showed NSR with peaked T waves, QRS widening and prolonged PQ interval. Was administered calcium gluconate, insulin with dextrose, Kayexalate, 80 mg IV Lasix, sodium bicarbonate. Subsequent K+ and EKG improved, normalizing. - Repeat Kayexalate in view of minimal further potassium decrease, recheck BMP in the morning - Low potassium diet - Continue to monitor in telemetry Chest pain - Troponin negative x 2. - Continue aspirin 81mg daily - Fasting lipids to be drawn tomorrow morning. Will consider statin therapy thereafter. Hypertensive urgency - Blood pressure on presentation 200/89, requiring 10 mg of IV labetalol and IV hydralazine - Continue amlodipine 10mg and carvedilol 25mg BID - IV hydralazine 10mg PRN SBP > 160mmHg - Hold lisinopril in view of hyperkalemia and chlorthalidone in view of MARK New onset CHF - CXR showed mild congestive failure. BNP 1607. Cardiology consulted -recs appreciated. Echo showed normal LV size and systolic function, but mild concentric LVH. LVEF 60-65%. No regional wall motion abnormalities. Mildly dilated RV with normal RV function. No significant valvular pathology. Grade II diastolic dysfunction. Normal estimated RA pressure. - Strict I/O's - Daily weights Diabetes - Hold home insulin - Sliding-scale insulin - HbA1c ordered tomorrow MARK - Creatinine 2.3 on admission, baseline ~1.8. Likely secondary to decreased perfusion/chlorthalidone use - Monitor BMP VTE prophylaxis - Subcutaneous heparin Full code Disposition: Telemetry Resident Physician Supervision Note: I interviewed and examined the patient. Discussed with Dr. Ochoa and agree with findings and plan as documented in the note. Any exceptions or clarifications are listed here: None Documented By: Faraz Philippe feeling ok now. was abruptly sob seemed to be orthopnea, improved w meds. not sob now. vitals note,d nad breathing unlabored lungs clear labs and echo reviewed ARF w hyperkalemia, acute diastolic CHF, refractory hypertension w possible hypertensive crisis as part of his dyspnea -med management as above Continued [facility] stay due to: multiple IV medications needed Discharge planning: home Resident Tracking Resident Involvement: Resident Care Provided Care Provided: Adult Hospital Medicine
[2016-09-05 14:29] LABS: ALKALINE PHOSPHATASE 134 U/L (45-117); ALT/SGPT 12 U/L (12-78); AST/SGOT 10 U/L (15-37); BLOOD UREA NITROGEN 39 mg/dl (7-18); BUN/CREATININE RATIO 18.7 (10-20); CALCIUM 8.5 mg/dl (8.5-10.1); CARBON DIOXIDE 22 mmol/L (21-32); CHLORIDE 111 mmol/L (98-107); GLUCOSE 192 mg/dl (70-99); POTASSIUM 6.3 mmol/L (3.5-5.1); SODIUM 141 mmol/L (136-145)
[2016-09-05 16:02] VITALS: BP 146/64; PULSE 73; TEMP 37; O2SAT 92
[2016-09-05 19:13] VITALS: BP_SYST 167; BP_SYST 173; BP_DIAS 69; BP_DIAS 74; PULSE 78; TEMP 36.9; O2SAT 94
[2016-09-05 21:25] VITALS: BP 148/68; PULSE 72
[2016-09-05 23:34] VITALS: BP 145/69; PULSE 78; TEMP 36.8; O2SAT 93
[2016-09-06 02:47] VITALS: BP 156/65; PULSE 81; TEMP 36.8; O2SAT 93
[2016-09-06] MEDS: NITROGLYCERIN OINT 2% 1GM PACKET EXT SCH (04:28)
[2016-09-06] MEDS: AMLODIPINE BESYLATE 5 MG TAB PO SCH (07:38)
[2016-09-06] MEDS: CARVEDILOL 25 MG TAB PO SCH (07:38)
[2016-09-06] MEDS: ASPIRIN 81 MG ECTAB PO SCH (07:38)
[2016-09-06] MEDS: INSULIN ASPART 100 UNITS/ML 3 ML PEN SC SCH ×2 (07:46→11:56)
[2016-09-06 07:47] LABS: BASO % 0.2 %; BASO ABS # 0.02 K/uL (0-0.2); COMPLETE YES; EOS % 5.3 %; HEMATOCRIT 39.5 % (42-52); IG% 0.1 %; LYMPH % 16.6 %; LYMPH ABS # 1.53 K/uL (1.2-3.4); MEAN CELL VOLUME 95.6 fL (80-100); MEAN CORPUSCULAR HGB CONC 33.4 g/dl (32-36); MEAN PLATELET VOLUME 9.2 fL (7.4-10.4); MONO % 6.4 %; NEUT % 71.4 %; PLATELET COUNT 336 K/uL (130-400); RED BLOOD COUNT 4.13 M/uL (4.7-6.1); WHITE BLOOD COUNT 9.21 K/uL (4.8-10.8)
[2016-09-06] MEDS: HEPARIN SOD 5000 UNIT/0.5 ML CARP SQ SCH (07:47)
[2016-09-06 07:48] VITALS: BP 157/68; PULSE 79; TEMP 36.8; O2SAT 95
--- NOTE | 2016-09-06 08:16 | Family Medicine Progress Note ---
Progress Note Date of Service Sep 06, 2016. Subjective Pt evaluation today including: conversation w/ patient Objective Vital Signs Date Time Temp Pulse Resp B/P Pulse Ox O2 Delivery O2 Flow Rate FiO2 09/06/16 07:48 36.8 79 20 157/68 95 Room Air 09/06/16 04:00 Room Air 09/06/16 02:47 36.8 81 20 156/65 93 Room Air 09/06/16 00:00 Room Air 09/05/16 23:34 36.8 78 19 145/69 93 Room Air 09/05/16 21:25 72 148/68 09/05/16 20:00 Room Air 09/05/16 19:13 36.9 78 20 167/74 94 Room Air 173/69 09/05/16 16:02 37.0 73 18 146/64 92 Room Air 09/05/16 16:00 Room Air 09/05/16 12:01 36.4 72 20 198/80 96 Room Air 09/05/16 12:00 Room Air Assessment and Plan Resident Physician Supervision Note: I interviewed and examined the patient. Discussed with Dr. Ochoa and agree with findings and plan as documented in the note. Any exceptions or clarifications are listed here: None Documented By: Faraz Lojaenour feeling better up to going home, explained ongoing "work in progress" of med management. explained sodium restriction at length. he expresses understanding feels safe and understands plan, wants to go home. vitals noted, nad, breathing unlabored, no pallor or icterus acute respiratory distress - appearing to be due to acute diastolic CHF perhaps w hypertensive crisis component. improved. chronic diastolic chf - for now given how rapidly he had ARF w hyperkalemia on chlorthalidone, will hold on standing diuretic - may need, but seems aware of need for sodium restriction and willing to make changes, explained <2000mg diet. ARF on CKD ~3 - stable again. BMP later this week. manage BP as above. renal US -- w refractory HTN and quick renal failure may harbor underlying MIRIAM -- would then be for outpatient management and/or vascular eval. refractory / uncontrolled HTN - as above stable for home - please see d/c summary as well Resident Tracking Resident Involvement: Resident Care Provided Care Provided: Adult [facility] Medicine
[2016-09-06 08:20] LABS: ESTIMATED AVERAGE GLUCOSE 186 mg/dl; HA1C FLAG Normal (Normal)
[2016-09-06 08:21] LABS: BUN/CREATININE RATIO 19.4 (10-20); CALCIUM 8.6 mg/dl (8.5-10.1); CREATININE 1.6 mg/dl (0.60-1.40); POTASSIUM 5.3 mmol/L (3.5-5.1)
--- NOTE | 2016-09-06 08:43 | Cardiology Follow-Up ---
Subjective Subjective Date of Service: Sep 06, 2016. Pt evaluation today including: conversation w/ patient, physical exam, chart review, lab review, review of studies, review of inpatient medication list Additional Details: Feeling well this AM. Shortness of breath improved. Breathing near baseline. No other new complaints. Tele reviewed -- no events overnight Problem List Medical Problems: (1) Acute renal failure Status: Acute (2) Hyperkalemia Status: Acute (3) Pulmonary edema Status: Acute Review of Systems Constitutional: No chills, No fever Eyes: No diplopia Respiratory: No cough, No shortness of breath, No wheezing Cardiac: No chest pain, No palpitations Abdomen: No nausea, No pain Musculoskeletal: No calf pain, No joint pain Male : No dysuria Neurologic: No numbness/tingling Psychiatric: No depression symptoms Heme: No abnormal bleeding/bruising Endo: No fatigue Skin: No rash Objective Vital Signs Last Vital Signs Documentation Date Time Temp Pulse Resp B/P Pulse Ox O2 Delivery O2 Flow Rate FiO2 09/06/16 07:48 36.8 79 20 157/68 95 Room Air 09/05/16 06:32 2.0 Physical Exam: General Appearance: no apparent distress ENT: hearing grossly normal Neck: supple, no JVD Respiratory/Chest: lungs clear, normal breath sounds, no respiratory distress, no accessory muscle use Cardiovascular: regular rate, rhythm, no edema, no JVD, no murmur Abdomen: normal bowel sounds, non tender, soft Extremities: non-tender, + pedal edema (trace) Neurologic/Psychiatric: alert, normal mood/affect, oriented x 3 Skin: normal color, warm/dry, no rash Assessment and Plan 1. Acute diastolic heart failure -- improved congestion post diuresis. No evidence of ACS as a precipitant 2. Acute on chronic renal insufficiency -- creatinine improved with diuresis 3. Hyperkalemia - K trending down. 4. Hypertension - improved from admit, not at target 5. Type 2 diabetes - on insulin Stable from a cardiac standpoint this AM. Continue carvedilol, amlodipine. Consider adding standing loop diuretic Stressed again with patient compliance with blood pressure regimen continue statin/ASA When stable from a medical standpoint can follow-up with heart failure clinic next week with repeat labs at that time. Continued [facility] stay due to: multiple IV medications needed Discharge planning: home Medications: Current Inpatient Medications Medications (Trade) Dose Ordered Sig/Kushla Route Start Time Stop Time Status Last Admin Dose Admin Heparin Sodium (Porcine) (Heparin Sq 5000 Unit/0.5ml) 5,000 unit Q12 SQ 09/05/16 09:00 10/05/16 08:59 09/06/16 07:47 5,000 UNIT Acetaminophen (Tylenol Tab) 650 mg Q4H PRN PO 09/05/16 06:15 10/05/16 06:14 Al Hydrox/Mg Hydrox/Simethicone (Maalox Max Susp) 15 ml Q4H PRN PO 09/05/16 06:15 10/05/16 06:14 Magnesium Hydroxide (Milk Of Magnesia Susp) 30 ml Q12H PRN PO 09/05/16 06:15 10/05/16 06:14 Ondansetron HCl (Zofran Inj) 4 mg Q6H PRN IV 09/05/16 06:15 10/05/16 06:14 Nitroglycerin (Nitrostat Tab) 0.4 mg UD PRN SL 09/05/16 06:15 10/05/16 06:14 Nitroglycerin (Nitroglycerin 2% Oint) 1 inch Q6H EXT 09/05/16 10:00 10/05/16 09:59 09/06/16 04:28 1 INCH Amlodipine Besylate (Norvasc Tab) 10 mg QAM PO 09/05/16 09:00 10/05/16 08:59 09/06/16 07:38 10 MG Aspirin (Ecotrin Tab) 81 mg QAM PO 09/05/16 09:00 10/05/16 08:59 09/06/16 07:38 81 MG Carvedilol (Coreg Tab) 25 mg BID PO 09/05/16 09:00 10/05/16 08:59 09/06/16 07:38 25 MG Tramadol HCl (Ultram Tab) 100 mg TID PRN PO 09/05/16 06:15 10/05/16 06:14 09/05/16 11:47 100 MG Hydralazine HCl (HydrALAZINE INJ) 10 mg Q6H PRN IV. 09/05/16 07:00 10/05/16 06:59 Insulin Aspart (novoLOG ASPART) SLIDING SCALE G... ACHS SC 09/05/16 07:00 10/05/16 06:59 09/06/16 07:46 3 UNITS Glucose (Glucose 40% Gel) 15-30 GRAMS 15 GRAMS... UD PRN PO 09/05/16 07:15 10/05/16 07:14 Glucose (Glucose Chew Tab) 4-8 Tablets 4 Tabl... UD PRN PO 09/05/16 07:15 10/05/16 07:14 Dextrose (Dextrose 50% 50ML Syringe) 25-50ML OF 50% DW IV FOR... UD PRN IV 09/05/16 07:15 10/05/16 07:14 Glucagon (Glucagon Inj) 1 mg UD PRN SQ 09/05/16 07:15 10/05/16 07:14 Lab Results: 09/06/16 07:20 Red Blood Count 4.13, Mean Corpuscular Volume 95.6, Mean Corpuscular Hemoglobin 32.0, Mean Corpuscular Hemoglobin Concent 33.4, Mean Platelet Volume 9.2, Neutrophils (%) (Auto) 71.4, Lymphocytes (%) (Auto) 16.6, Monocytes (%) (Auto) 6.4, Eosinophils (%) (Auto) 5.3, Basophils (%) (Auto) 0.2, Neutrophils # (Auto) 6.57, Lymphocytes # (Auto) 1.53, Monocytes # (Auto) 0.59, Eosinophils # (Auto) 0.49, Basophils # (Auto) 0.02 Test 09/05/16 13:09 09/05/16 21:06 09/06/16 06:43 09/06/16 07:20 Est Creatinine Clear Calc Drug Dose 50.0 ml/min Total Bilirubin 0.2 mg/dl (0.2-1) Direct Bilirubin < 0.1 mg/dl (0-0.2) Aspartate Amino Transf (AST/SGOT) 10 U/L (15-37) Alanine Aminotransferase (ALT/SGPT) 12 U/L (12-78) Alkaline Phosphatase 134 U/L (45-117) Total Protein 7.2 gm/dl (6.4-8.2) Albumin 2.3 gm/dl (3.4-5.0) Troponin I < 0.015 ng/ml (0-0.045) Bedside Glucose 140 mg/dl (70-99) White Blood Count 9.21 K/uL (4.8-10.8) Red Blood Count 4.13 M/uL (4.7-6.1) Hemoglobin 13.2 g/dL (14.0-18.0) Hematocrit 39.5 % (42-52) Mean Corpuscular Volume 95.6 fL (80-100) Mean Corpuscular Hemoglobin 32.0 pg (25-34) Mean Corpuscular Hemoglobin Concent 33.4 g/dl (32-36) Platelet Count 336 K/uL (130-400) Mean Platelet Volume 9.2 fL (7.4-10.4) Neutrophils (%) (Auto) 71.4 % Lymphocytes (%) (Auto) 16.6 % Monocytes (%) (Auto) 6.4 % Eosinophils (%) (Auto) 5.3 % Basophils (%) (Auto) 0.2 % Neutrophils # (Auto) 6.57 K/uL (1.4-6.5) Lymphocytes # (Auto) 1.53 K/uL (1.2-3.4) Monocytes # (Auto) 0.59 K/uL (0.11-0.59) Eosinophils # (Auto) 0.49 K/uL (0-0.5) Basophils # (Auto) 0.02 K/uL (0-0.2) RDW Standard Deviation 47.7 fL (36.4-46.3) RDW Coefficient of Variation 13.6 % (11.5-14.5) Immature Granulocyte % (Auto) 0.1 % Immature Granulocyte # (Auto) 0.01 K/uL (0.00-0.02)
[2016-09-06] MEDS ORDERED: TRAMADOL HCL 50 MG TAB PO PRN (09:00)
[2016-09-06] MEDS ORDERED: ATORVASTATIN 40 MG TAB PO ONE (11:30)
[2016-09-06] MEDS ORDERED: ISOSORBIDE MONONITRATE 30 MG TABCR PO ONE (12:00)
[2016-09-06 12:06] VITALS: BP 164/81; PULSE 67; TEMP 36.8; O2SAT 94
[2016-09-06 13:33] VITALS: Ht 182.9 cm; Wt 120.1 kg
--- NOTE | 2016-09-06 14:06 | DIAGNOSTIC IMAGING REPORT ---
Duplex renal arterial Doppler DUPLEX RENAL ARTERY CLINICAL HISTORY: Refractory HTN hypertension TECHNIQUE: Doppler ultrasound COMPARISON STUDY: None FINDINGS: Unremarkable velocity characteristics. No significant abnormality of impedance characteristics. IMPRESSION: No significant stenosis Electronically signed by: Tj Paris M.D. 09/06/2016 2:04 PM Dictated Date/Time: 09/06/2016 2:03 PM
[2016-09-06 15:20] VITALS: BP 154/74; PULSE 69; TEMP 37; O2SAT 96
[2016-09-06] MEDS ORDERED: IMDSR30 PO ×2 (15:27→17:18)
[2016-09-06] MEDS ORDERED: LPT40 PO ×2 (15:27→17:18)
[2016-09-06] MEDS ORDERED: TRAM-10 PO (15:27)
--- NOTE | 2016-09-06 15:55 | Discharge Instructions ---
Discharge Instructions Date of Service Sep 06, 2016. Admission Reason for Admission: Hyperkalemia, Shortness Of Breath Discharge Discharge Diagnosis / Problem: CHF, hyperkalemia, hypertensive urgency, refractive hypertension Discharge Goals Goal(s): Improve disease control, Diagnostic testing, Therapeutic intervention Activity Recommendations Activity Limitations: resume your previous activity . Instructions / Follow-Up Instructions / Follow-Up Congestive heart failure You were admitted with shortness of breath. Chest x-ray showed evidence of mild fluid on the lung. You were given a high dose IV water pill, Lasix, which caused you to urinate more, and seemed to improve in your symptoms. Your heart was worked up by the vessel builder. There was no evidence of a heart attack on the labs, but the ultra sound of the heart did show some enlargement of the right and left ventricles, consistent with a congested heart picture. The heart is otherwise squeezing well with no valve issues. You were started on aspirin 81mg daily for your heart and in looking at your lipid levels, which were significantly elevated, you were started on atorvastatin 40mg daily. This is a medium dose. Your PCP will need to reassess your lipids in 1-2 months and may make adjustments to the dosage, as necessary. LIFESTYLE: At home it will be necessary to make many lifestyle changes to ensure a healthy heart. Start with eating healthy (lots of fruits and vegetable) , reduce carbohydrates/starchy foods (your diabetes will thank you also!) and maintain a low salt diet, less than 2000mg daily, evenly spread out across meals. It may taste different initially, but your tastebuds will adjust over the next month! Activity is highly recommended. Gradually increase this as tolerated aiming for 30 min of activity that increases your heart rate at least every other day (~4-5x per week). Eventually, your ability to do more vigorous exercise is possible if you desire. It would be advisable to speak with your PCP prior to doing so. High Potassium On admission your potassium levels were severely elevated at 7.6. In addition, there were changes evident in your initial EKG, which were concerning. Urgent management included medications which would stabilize your heart muscle and remove excess potassium from the body. Rechecking labs and EKG showed normalized potassium levels and heart tracings. This likely occurred due to acute kidney stress from your otherwise appropriate medications. They have thus been changed, as outlined below. Please have your kidneys checked later this week to ensure your potassium is stable. Elevated blood pressure (hypertensive urgency, refractory hypertension) Your blood pressure on presentation was 200/89, requiring 10 mg of IV labetalol and IV hydralazine. This improved the blood pressures somewhat. Your home medications amlodipine 10mg daily and carvedilol 25mg twice daily were continued , and you should continue to take both upon discharge. Lisinopril was held due to the high potassium and chlorthalidone was stopped due to the acute worsening of your kidneys. (Your creatinine was 2.3 on admission, but improved to 1.6 by time of discharge). Your blood pressure remained elevated despite appropriate therapy prescribed by your PCP, as such a kidney artery ultra sound was performed. The results showed no evidence of blockage though, which is reassuring. In hospital you were tolerating a nitro cream applied to your skin. As such, for blood pressure control, you are being discharged on Imdur 30mg daily. Please contact your PCP if you experience dizziness upon standing or severe worsening of leg swelling. Diabetes - Continue home diabetes medication regimen. HbA1c measured in hospital was 8.1. Changes in medication should be discussed with your PCP Current Hospital Diet Patient's current hospital diet: AHA Diet (Heart Healthy), Low Sodium Diet (2gm Na), Diabetes Type 2 Diet, Renal Diet, Low Potassium Diet (2g K) Discharge Diet Recommended Diet: AHA Diet (Heart Healthy), Low Sodium Diet (2gm Na), Diabetes Type 2 Diet, Renal Diet Pending Studies Studies pending at discharge: no Laboratory Results Hemoglobin A1c Test 09/05/16 21:06 Range/Units Estimated Average Glucose 186 mg/dl Hemoglobin A1c 8.1 H 4.5-5.6 % Lipid Panel Test 09/06/16 07:20 Range/Units Triglycerides Level 359 H 0-150 mg/dl Cholesterol Level 209 H 0-200 mg/dl HDL Cholesterol 26 mg/dl Cholesterol/HDL Ratio 8.0 LDL Cholesterol, Calculated 111 mg/dl Medical Emergencies . Who to Call and When: Medical Emergencies: If at any time you feel your situation is an emergency, please call 911 immediately. . Non-Emergent Contact Non-Emergency issues call your: Primary Care Provider . . "Provider Documentation" section prepared by Kathy Ochoa. VTE Core Measure Inpt VTE Proph given/why not?: Unfractionated heparin SQ
[2016-09-06 17:05] VITALS: BP 154/74; PULSE 69; TEMP 37; O2SAT 96
--- NOTE | 2016-09-06 17:25 | Progress Note ---
Progress Note Date of Service Sep 06, 2016. Progress Note WORK NOTE To whom it may concern Mr. Mando Rodriguez was admitted to [facility] from 09/04/16 to . He has been advised rest and take some time off work. He may return to work on 09/12/16, or sooner if he is feeling well enough. Your understanding would be appreciated. - Kathy Ochoa MD
--- NOTE | 2016-09-06 18:25 | Discharge Summary ---
Discharge Summary Date of Service Sep 06, 2016. Discharge Summary Admission Date: Sep 05, 2016 at 06:06 Discharge Date: Sep 06, 2016 Discharge Disposition: Home Principal Diagnosis: CHF, hyperkalemia, hypertensive urgency, refractory hypertension Immunizations: Have You Had Influenza Vaccine: Yes History of Tetanus Vaccine?: Unknown History of Pneumococcal: Yes History of Hepatitis B Vaccine: Unknown Medication Reconciliation New Medications: Atorvastatin (Atorvastatin Calcium) 40 Mg Tab 40 MG PO QAM for 30 Days, #30 TAB 3 Refills Isosorbide Mononitrate (Isosorbide Mononitrate ER) 30 Mg Tabcr 30 MG PO QAM for 30 Days, #30 TAB 3 Refills Changed Medications: Tramadol (Ultram) 50 Mg Tab 100 MG PO BID PRN for Pain for 30 Days, #120 TAB (Changed from: TID) Continued Medications: Amlodipine (Norvasc) 10 Mg Tab 10 MG PO QAM, TAB Aspirin (Aspirin Chewable) 81 Mg Chew 81 MG PO QAM Carvedilol (Coreg) 25 Mg Tab 25 MG PO BID, TAB Insulin Glargine (Lantus) 100 Unit/Ml Inj 40 UNITS SC AMPM, VIAL Insulin Lispro (Human) (Humalog Kwikpen) 100 Unit/Ml Inj 6-8 UNITS SQ AMPM Discontinued Medications: Chlorthalidone (Hygroton) 25 Mg Tab 25 MG PO DAILY, TAB Lisinopril (Zestril) 40 Mg Tab 40 MG PO QAM, TAB Discharge Exam Patient continues to feel well. There were no acute overnight events. He has had no further episode of CP or SOB. He continues to deny any further clamminess or chest tightness, nor has he experienced any palpitations, nausea, headache or vision changes. He states his leg swelling is improved. He has slept well, is tolerating diet and has no complaints currently. Significant time was spent with patient discussing heart health, balanced diet, need for physical activity and the importance of compliance to medication. Patient was thankful. Review of Systems: Constitutional: No chills, No fever Respiratory: No cough, No shortness of breath Cardiovascular: + edema, No PND, No chest pain, No orthopnea, No palpitations Abdomen: No constipation, No diarrhea, No nausea, No pain, No vomiting Musculoskeletal: + muscle pain (long standing) Genitourinary - Male: + dysuria Physical Exam: General Appearance: WD/WN, no apparent distress Eyes: normal inspection ENT: hearing grossly normal, pharynx normal Neck: supple, no adenopathy, no JVD Respiratory/Chest: lungs clear, normal breath sounds, no respiratory distress, no accessory muscle use Cardiovascular: regular rate, rhythm, normal peripheral pulses Abdomen / GI: normal bowel sounds, non tender, soft Extremities: no calf tenderness, + pedal edema, + swelling Neurologic/Psychiatric: alert, normal mood/affect, normal reflexes Skin: normal color, warm/dry, no rash Hospital Course 61 year old male with DM and HTN admitted with acute SOB, uncontrolled hypertension and hyperkalemia on a background of worsening LL edema requiring recent addition of chlorthalidone to medication regimen. Hyperkalemia - Peak K+ measured as 7.6 in the ER. Initial EKG showed NSR with peaked T waves, QRS widening and prolonged PQ interval. Was administered calcium gluconate, insulin with dextrose, Kayexalate, 80 mg IV Lasix, sodium bicarbonate. Subsequent K+ and EKG improved, normalizing. Ongoing improvement of potassium levels with repeat Kayexalate. EKG showed NSR. Recommend repeat BMP in 2-3 days time to ensure stable K+ levels Chest pain - Troponin negative x 3. Cardiology assessment not likely related to ischemia. Continued aspirin 81mg daily. Fasting lipids showed severely elevated TG and chol. Started atorvastatin 40mg daily. Lipids will need to be reassessed in a month or so, with titration of atorvastatin if warranted. Hypertensive urgency/ refractory hypertension - Blood pressure on presentation 200/89, requiring 10 mg of IV labetalol and IV hydralazine. Home meds amlodipine 10mg and carvedilol 25mg BID continued, but lisinopril held in view of hyperkalemia and chlorthalidone in view of MARK. Evidence of refractory hypertension as blood pressure still significantly elevated despite 4 otherwise appropriate anti-hypertensives. Renal artery Doppler performed, were negative for stenosis. Patient was tolerating nitro cream in hospital to control BP. As such, started on imdur 30mg qAM, which is to be continued on discharge, along with amlodipine and metoprolol. Follow up with PCP recommended to assess BP control in 1-2 weeks. New onset CHF - CXR showed mild congestive failure. BNP 1607. Administered one time dose 80 mg IV Lasix, which improved symptoms. Cardiology consulted. Echo showed normal LV size and systolic function, but mild concentric LVH. LVEF 60-65 %. No regional wall motion abnormalities. Mildly dilated RV with normal RV function. No significant valvular pathology. Grade II diastolic dysfunction. Normal estimated RA pressure. Advised patient for lifestyle changes: balanced diet, low salt diet, increased exercise. Advised him to watch swelling and weights. No additional diuretic prescribed at this time, as patient seems keen to try lifestyle changes first. MARK - Likely secondary to decreased perfusion/chlorthalidone use. Creatinine 2.3 on admission, baseline ~1.8 (as per labs from last year). Creatinine 1.6 at time of discharge. Diabetes - HbA1c 8.1. Patient advised to continue home insulin, with further discussion with PCP regarding regimen changes. VTE prophylaxis - Subcutaneous heparin Full code Total Time Spent: Less than 30 minutes This includes examination of the patient, discharge planning, medication reconciliation, and communication with other providers. Discharge Instructions Please refer to the electronic Patient Visit Report (Discharge Instructions) for additional information. Additional Copies To Ana Paula Mccollum, Resident Tracking Resident Involvement: Resident Care Provided Care Provided: Adult [facility]
[2016-09-07] MEDS ORDERED: ATORVASTATIN 40 MG TAB PO SCH (09:00)
[2016-09-07] MEDS ORDERED: ISOSORBIDE MONONITRATE 30 MG TABCR PO SCH (09:00)
[2016-10-13] MEDS ORDERED: INSDGI SC (04:41)
[2016-10-13] MEDS ORDERED: INSU100I2 SQ (04:42)
[2016-10-13] MEDS ORDERED: CARV25TA2 PO (04:42)
[2016-10-13] MEDS ORDERED: ASPCH81X PO (09:36)
== END 2016-09-06 17:45 | disposition home or self-care (01) | DRG 291 ==
LOC: ENRESERVTM → ENRESERVDT → EDBD 04:12 → C.EDA 04:13 → C.2T 06:06
PROVIDERS: ADMIT Family Medicine; ATTEND Internal Medicine
DX: I13.0 Hypertensive heart and chronic kidney disease with heart failure and stage 1 through stage 4 chronic kidney disease, or unspecified chronic kidney disease (principal); I50.31 Acute diastolic (congestive) heart failure; N17.9 Acute kidney failure, unspecified; E87.5 Hyperkalemia; E03.9 Hypothyroidism, unspecified; N18.3 Chronic kidney disease, stage 3 (moderate); F17.220 Nicotine dependence, chewing tobacco, uncomplicated; I16.0 Hypertensive urgency; E11.22 Type 2 diabetes mellitus with diabetic chronic kidney disease; R07.9 Chest pain, unspecified; R06.00 Dyspnea, unspecified; Z87.39 Personal history of other diseases of the musculoskeletal system and connective tissue; Z79.82 Long term (current) use of aspirin; Z79.4 Long term (current) use of insulin; Z79.899 Other long term (current) drug therapy; Z79.891 Long term (current) use of opiate analgesic

== ENCOUNTER → 2016-09-08 | Outpatient (CLI) | payer BC ==
[~2016-09-08] MED LIST changes: +ASPCH81X PO; +ATOR-24 PO; +CARV25TA2 PO; -CARV6.252 PO; -GABA-113 PO; +IMDSR30 PO; +INSDGI SC; +INSU100I2 SQ; -INSUINJ4 SQ; +ISOS30TA3 PO; +LEVO50TA6 PO; +LIDO2SOL19 PO; -LISI40TA PO; +LPT40 PO; +LSX40 PO; +MELO7.5T5 PO; -MULT-506 PO; +NRV/10 PO; -OMEG10007 PO; +OXYC1TAB3 PO; -ROSU20TA PO; +ROSU20TA22 PO
[2016-09-08 13:56] LABS: BLOOD UREA NITROGEN 47 mg/dl (7-18); BUN/CREATININE RATIO 24.9 (10-20); CARBON DIOXIDE 22 mmol/L (21-32); CHLORIDE 106 mmol/L (98-107); GLUCOSE 156 mg/dl (70-99); POTASSIUM 5.1 mmol/L (3.5-5.1); SODIUM 136 mmol/L (136-145)
[2016-09-08 13:57] LABS: CALCIUM 9.3 mg/dl (8.5-10.1)
[2016-09-08 14:00] LABS: PROSTATE SPECIFIC ANTIGEN 1.98 ng/ml (0.000-4.000); THYROID STIMULATING HORMONE 9.68 uIu/ml (0.300-4.500)
== END | disposition home or self-care (01) ==
LOC: C.LABPBG 07:33
PROVIDERS: ATTEND Family Medicine
DX: R39.9 Unspecified symptoms and signs involving the genitourinary system (principal); Z11.59 Encounter for screening for other viral diseases; E53.8 Deficiency of other specified B group vitamins; E78.5 Hyperlipidemia, unspecified; I12.9 Hypertensive chronic kidney disease with stage 1 through stage 4 chronic kidney disease, or unspecified chronic kidney disease; E11.22 Type 2 diabetes mellitus with diabetic chronic kidney disease; N18.3 Chronic kidney disease, stage 3 (moderate); E03.9 Hypothyroidism, unspecified

== ENCOUNTER → 2016-09-29 | Outpatient (CLI) | payer BC ==
[~2016-09-29] MED LIST changes: +GADAVIST IV PRN
--- NOTE | 2016-09-29 13:02 | DIAGNOSTIC IMAGING REPORT ---
MRI brain BRAIN COMBO FOR IAC CLINICAL HISTORY: H91.8X2 Asymmetrical hearing loss, [id number] hearing loss TECHNIQUE: Multiaxial MRI acquisition pre and post gadolinium enhancement COMPARISON STUDY: None FINDINGS: Diffusion-weighted images show no evidence for an acute ischemic insult. 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 Minimal chronic small vessel change is present. Ventricular system is midline. There is no significant postcontrast enhancement. Internal artery canals are within normal limits. Sella and parasellar regions are unremarkable. IMPRESSION: Age-related change. No acute process. Electronically signed by: Tj Paris M.D. 09/29/2016 1:01 PM Dictated Date/Time: 09/29/2016 12:56 PM
== END | disposition home or self-care (01) ==
LOC: C.MRI 11:15
DX: H91.8X2 Other specified hearing loss, left ear (principal)

== ENCOUNTER → 2016-10-12 | Outpatient (CLI) | payer BC ==
[~2016-10-12] MED LIST changes: -GADAVIST IV PRN
[2016-10-12 15:43] LABS: BASO % 0.7 %; BASO ABS # 0.06 K/uL (0-0.2); COMPLETE YES; EOS % 10.3 %; HEMATOCRIT 41.9 % (42-52); IG% 0.2 %; LYMPH % 20.8 %; LYMPH ABS # 1.74 K/uL (1.2-3.4); MEAN CELL VOLUME 97.2 fL (80-100); MEAN CORPUSCULAR HEMOGLOBIN 30.6 pg (25-34); MEAN CORPUSCULAR HGB CONC 31.5 g/dl (32-36); MEAN PLATELET VOLUME 9.3 fL (7.4-10.4); MONO % 11.1 %; NEUT % 56.9 %; PLATELET COUNT 336 K/uL (130-400); RED BLOOD COUNT 4.31 M/uL (4.7-6.1); WHITE BLOOD COUNT 8.36 K/uL (4.8-10.8)
[2016-10-12 16:00] LABS: URINE APPEARANCE CLEAR (CLEAR); URINE BILIRUBIN NEG (NEG); URINE COLOR YELLOW; URINE EPITHELIAL CELL AUTO 20-30 /lpf (0-5); URINE NITRITE NEG (NEG); UROBILINOGEN NEG (NEG); ZZUR CULT IF INDIC CLEAN CATCH NO
[2016-10-12 16:03] LABS: MANUAL MICROSCOPIC REQUIRED? NO; REVIEW REQ? NO
[2016-10-12 16:05] LABS: URINE PROTIEN/CREAT RATIO 7.5 (0-0.2); URINE TOTAL PROTEIN 824.7 mg/dl (0-11.9)
[2016-10-12 16:13] LABS: BLOOD UREA NITROGEN 39 mg/dl (7-18); BUN/CREATININE RATIO 16.4 (10-20); CALCIUM 9.4 mg/dl (8.5-10.1); CARBON DIOXIDE 28 mmol/L (21-32); CHLORIDE 104 mmol/L (98-107); GLUCOSE 108 mg/dl (70-99); MAGNESIUM 2.3 mg/dl (1.8-2.4); POTASSIUM 4.6 mmol/L (3.5-5.1); SODIUM 140 mmol/L (136-145)
[2016-10-12 16:26] LABS: PHOSPHORUS 4.7 mg/dl (2.5-4.9)
[2016-10-13 06:14] LABS: ESTIMATED AVERAGE GLUCOSE 186 mg/dl; HA1C FLAG Normal (Normal)
== END | disposition home or self-care (01) ==
LOC: C.LAB1850 14:19
PROVIDERS: ATTEND Nurse Practitioner Adult Health
DX: E53.8 Deficiency of other specified B group vitamins (principal); E03.9 Hypothyroidism, unspecified; E11.22 Type 2 diabetes mellitus with diabetic chronic kidney disease; N18.3 Chronic kidney disease, stage 3 (moderate); D64.9 Anemia, unspecified; N28.9 Disorder of kidney and ureter, unspecified

== ENCOUNTER 2016-10-13 21:29 | Emergency (ER) | payer BC ==
[~2016-10-13] VITALS: Ht 182.9 cm; Wt 119.7 kg
[~2016-10-13 21:29] MED LIST changes: -ATOR-24 PO; -ISOS30TA3 PO; -LEVO50TA6 PO; -LIDO2SOL19 PO; -LSX40 PO; -MELO7.5T5 PO; -NRV/10 PO; -OXYC1TAB3 PO; -ROSU20TA22 PO
[2016-10-13 21:33] VITALS: TEMP 36.4; Ht 182.9 cm; Wt 119.7 kg
[2016-10-13 22:11] VITALS: O2SAT 94
--- NOTE | 2016-10-13 22:17 | DIAGNOSTIC IMAGING REPORT ---
CHEST ONE VIEW PORTABLE CLINICAL HISTORY: cough/sob dyspnea COMPARISON STUDY: 09/05/2016 FINDINGS: The bones soft tissues and hemidiaphragms are normal. The cardiomediastinal silhouette is normal. The lungs are clear. The pulmonary vasculature is normal. IMPRESSION: Negative chest. Electronically signed by: Tj Paris M.D. 10/13/2016 10:15 PM Dictated Date/Time: 10/13/2016 10:15 PM
[2016-10-13 22:53] LABS: PROTHROMBIN TIME (PATIENT) 10.2 SECONDS (9.0-12.0)
[2016-10-13] MEDS ORDERED: TRAM-10 PO (23:03)
[2016-10-13] MEDS ORDERED: ISOS30TA3 PO (23:03)
[2016-10-13] MEDS ORDERED: ATOR-24 PO (23:03)
[2016-10-13] MEDS ORDERED: LEVO50TA6 PO (23:03)
[2016-10-13 23:07] LABS: ALT/SGPT 27 U/L (12-78); AST/SGOT 22 U/L (15-37); BLOOD UREA NITROGEN 45 mg/dl (7-18); BUN/CREATININE RATIO 16.6 (10-20); CARBON DIOXIDE 26 mmol/L (21-32); CHLORIDE 103 mmol/L (98-107); GLUCOSE 208 mg/dl (70-99); POTASSIUM 4.3 mmol/L (3.5-5.1); SODIUM 138 mmol/L (136-145)
[2016-10-13 23:17] LABS: ALB/GLOB RATIO 0.5 (0.9-2); ALKALINE PHOSPHATASE 158 U/L (45-117)
[2016-10-14 00:10] LABS: BASO % 0.3 %; BASO ABS # 0.03 K/uL (0-0.2); COMPLETE YES; EOS % 6.4 %; HEMATOCRIT 37.4 % (42-52); IG% 0.3 %; LYMPH % 19.7 %; LYMPH ABS # 2.16 K/uL (1.2-3.4); MEAN CELL VOLUME 96.9 fL (80-100); MEAN CORPUSCULAR HEMOGLOBIN 31.6 pg (25-34); MEAN CORPUSCULAR HGB CONC 32.6 g/dl (32-36); MEAN PLATELET VOLUME 10.3 fL (7.4-10.4); MONO % 10.3 %; PLATELET COUNT 343 K/uL (130-400); RED BLOOD COUNT 3.86 M/uL (4.7-6.1); WHITE BLOOD COUNT 10.98 K/uL (4.8-10.8)
[2016-10-14 00:47] LABS: URINE APPEARANCE CLEAR (CLEAR); URINE BILIRUBIN NEG (NEG); URINE COLOR YELLOW; URINE NITRITE NEG (NEG); URINE PH 6.5 (4.5-7.5); URINE SPECIFIC GRAVITY 1.015 (1.000-1.030); UROBILINOGEN NEG (NEG); ZZUR CULT IF INDIC CLEAN CATCH NO
[2016-10-14 00:51] LABS: MANUAL MICROSCOPIC REQUIRED? NO; REVIEW REQ? NO
[2016-10-14] MEDS ORDERED: LIDOCAINE HCL 2% VISC SOLN 20 ML UDC MT STA (01:08)
[2016-10-14] MEDS ORDERED: LIDO2SOL19 PO (01:12)
--- NOTE | 2016-10-14 01:17 | EMERGENCY ROOM VISIT NOTE ---
History First contact with patient: 21:36 Chief Complaint: COUGH Stated Complaint: HEAD COLD, COUGH Nursing Triage Summary: cough, sore throat for three days coughing up "yellow junk" History of Present Illness The patient is a 61 year old male who presents to the Emergency Room with complaints of cough, congestions, subjective fever and chills and achiness for the past few days. Patient denies chest pain, dyspnea, abdominal pain, nausea, vomiting, diarrhea, diaphoresis, leg pain. He is tolerating by mouth fluids and food. Review of Systems See HPI for pertinent positives & negatives. A total of 10 systems reviewed and were otherwise negative. Past Medical/Surgical History Medical Problems: (1) Shortness of breath (2) Staphylococcal infectious disease Family History Diabetes mellitus Social History Smoking Status: Never Smoker Marital Status: Housing Status: lives with significant other Occupation Status: employed Current/Historical Medications Scheduled Aspirin (Aspirin Chewable), 81 MG PO QAM Atorvastatin (Lipitor), 40 MG PO DAILY Carvedilol (Coreg), 25 MG PO BID Insulin Glargine (Lantus), 40 UNITS SC AMPM Insulin Lispro (Human) (Humalog Kwikpen), 4-6 UNITS SQ AMPM Isosorbide Mononitrate Ext Rel (Imdur Ext Rel), 30 MG PO QAM Levothyroxine Sodium (Levothyroxine Sodium), 1 TAB PO DAILY Lidocaine Hcl (Mouth-Throat) (Lidocaine Viscous), 5 ML PO Q6H Scheduled PRN Tramadol (Ultram), 100 MG PO BID PRN for Pain Allergies Coded Allergies: No Known Allergies (Unverified , 09/05/16) Physical Exam Vital Signs Date Time Temp Pulse Resp B/P Pulse Ox O2 Delivery O2 Flow Rate FiO2 10/13/16 23:29 74 20 142/83 94 Room Air 10/13/16 22:16 81 10/13/16 22:11 94 Room Air 10/13/16 22:09 93 Room Air 10/13/16 21:33 36.4 90 20 208/86 93 Room Air Physical Exam VITALS: Vitals are noted on the nurse's note and reviewed by myself. Vital signs intensive. GENERAL: Pleasant male, in no acute distress, nondiaphoretic, well-developed well-nourished. SKIN: The skin was without rashes, erythema, edema, or bruising. There is no tenting of the skin. Capillary reflex less than 2 seconds. HEAD: Normocephalic atraumatic. EARS: External auditory canals clear, tympanic membranes pearly desai without erythema or effusion bilaterally. EYES: Pupils equal round and reactive to light and accommodation. Conjunctivae without injection, sclerae without icterus. Extraocular movements intact. NOSE: Patent, turbinates without inflammation or discharge. No sinus tenderness. MOUTH: Mucous membranes are dry. Pharynx without erythema or exudate. Uvula midline. Airway patent. Tongue does not deviate. NECK: Supple without nuchal rigidity. No lymphadenopathy. No thyromegaly. Cervical spine is nontender. No JVD. HEART: Regular rate and rhythm LUNGS: Clear to auscultation bilaterally without wheezes, rales or rhonchi. No dullness to percussion. No retractions or accessory muscle use. ABDOMEN: Positive bowel sounds x 4. Normal tympanic percussion. Soft, nontender, without masses or organomegaly. Ordoñez sign negative. No guarding or rebound tenderness. MUSCULOSKELETAL: No muscle atrophy, erythema, noted. + 1 Pitting edema bilaterally up to the mid tib-fib. NEURO: Patient was alert and oriented to person place and time. Normal sensation to light and sharp touch. No focal neurological deficits. Medical Decision & Procedures Laboratory Results 10/13/16 22:24 Red Blood Count 3.86, Mean Corpuscular Volume 96.9, Mean Corpuscular Hemoglobin 31.6, Mean Corpuscular Hemoglobin Concent 32.6, Mean Platelet Volume 10.3, Neutrophils (%) (Auto) 63.0, Lymphocytes (%) (Auto) 19.7, Monocytes (%) (Auto) 10.3, Eosinophils (%) (Auto) 6.4, Basophils (%) (Auto) 0.3, Neutrophils # (Auto ) 6.93, Lymphocytes # (Auto) 2.16, Monocytes # (Auto) 1.13, Eosinophils # (Auto ) 0.70, Basophils # (Auto) 0.03 10/13/16 22:24 Test 10/13/16 22:24 10/13/16 22:29 10/13/16 22:41 10/14/16 00:30 White Blood Count 10.98 K/uL (4.8-10.8) Red Blood Count 3.86 M/uL (4.7-6.1) Hemoglobin 12.2 g/dL (14.0-18.0) Hematocrit 37.4 % (42-52) Mean Corpuscular Volume 96.9 fL (80-100) Mean Corpuscular Hemoglobin 31.6 pg (25-34) Mean Corpuscular Hemoglobin Concent 32.6 g/dl (32-36) Platelet Count 343 K/uL (130-400) Mean Platelet Volume 10.3 fL (7.4-10.4) Neutrophils (%) (Auto) 63.0 % Lymphocytes (%) (Auto) 19.7 % Monocytes (%) (Auto) 10.3 % Eosinophils (%) (Auto) 6.4 % Basophils (%) (Auto) 0.3 % Neutrophils # (Auto) 6.93 K/uL (1.4-6.5) Lymphocytes # (Auto) 2.16 K/uL (1.2-3.4) Monocytes # (Auto) 1.13 K/uL (0.11-0.59) Eosinophils # (Auto) 0.70 K/uL (0-0.5) Basophils # (Auto) 0.03 K/uL (0-0.2) RDW Standard Deviation 48.3 fL (36.4-46.3) RDW Coefficient of Variation 13.5 % (11.5-14.5) Immature Granulocyte % (Auto) 0.3 % Immature Granulocyte # (Auto) 0.03 K/uL (0.00-0.02) Prothrombin Time 10.2 SECONDS (9.0-12.0) Prothromb Time International Ratio 1.0 (0.9-1.1) Activated Partial Thromboplast Time 26.9 SECONDS (21.0-31.0) Partial Thromboplastin Ratio 1.0 Anion Gap 9.0 mmol/L (3-11) Est Creatinine Clear Calc Drug Dose 37.9 ml/min Estimated GFR () 28.0 Estimated GFR (Non- 24.2 BUN/Creatinine Ratio 16.6 (10-20) Calcium Level 8.0 mg/dl (8.5-10.1) Magnesium Level 2.0 mg/dl (1.8-2.4) Total Bilirubin 0.2 mg/dl (0.2-1) Aspartate Amino Transf (AST/SGOT) 22 U/L (15-37) Alanine Aminotransferase (ALT/SGPT) 27 U/L (12-78) Alkaline Phosphatase 158 U/L (45-117) Troponin I < 0.015 ng/ml (0-0.045) Pro-B-Type Natriuretic Peptide 306 pg/ml (0-900) Total Protein 7.6 gm/dl (6.4-8.2) Albumin 2.6 gm/dl (3.4-5.0) Globulin 5.0 gm/dl (2.5-4.0) Albumin/Globulin Ratio 0.5 (0.9-2) Thyroid Stimulating Hormone (TSH) 4.770 uIu/ml (0.300-4.500) Bedside Troponin I 0.000 ng/ml (0-0.045) Bedside Lactic Acid Venous 0.55 mmol/L (0.90-1.70) Urine Color YELLOW Urine Appearance CLEAR (CLEAR) Urine pH 6.5 (4.5-7.5) Urine Specific [place] 1.015 (1.000-1.030) Urine Protein 3+ (NEG) Urine Glucose (UA) 1+ (NEG) Urine Ketones NEG (NEG) Urine Occult Blood TRACE (NEG) Urine Nitrite NEG (NEG) Urine Bilirubin NEG (NEG) Urine Urobilinogen NEG (NEG) Urine Leukocyte Esterase NEG (NEG) Urine WBC (Auto) 1-5 /hpf (0-5) Urine RBC (Auto) 0-4 /hpf (0-4) Urine Hyaline Casts (Auto) 1-5 /lpf (0-5) Urine Epithelial Cells (Auto) 5-10 /lpf (0-5) Urine Bacteria (Auto) NEG (NEG) Medications Administered Medications (Trade) Dose Ordered Sig/Kushal Route Start Time Stop Time Status Last Admin Dose Admin Lidocaine HCl (Viscous Lidocaine 2% Soln) 10 ml NOW STAT MT 10/14/16 01:08 10/14/16 01:09 DC 10/14/16 01:13 10 ML ED Course Prior records/ancillary studies reviewed. Triage Nursing notes reviewed. Additional history obtained from family. The patient's history was concerning for cold symptoms Differential diagnosis: Etiologies such as viral syndrome, otitis, pharyngitis, pneumonia, influenza, meningitis, urinary tract infection, sepsis, bacteremia, as well as others were entertained. Physical examination: Patient is alert, interactive and well-appearing ER treatment provided: By mouth fluids On reassessment the patient felt better. Diagnostics interpreted by me: ECG: Normal sinus, normal intervals, no acute ST-T wave changes. Impression normal sinus rhythm interpreted by myself The labs revealed negative urine Creatinine 2.7 mildly elevated per chart review as it was 2.5 prior Negative troponin Imaging studies: CHEST ONE VIEW PORTABLE CLINICAL HISTORY: cough/sob dyspnea COMPARISON STUDY: 09/05/2016 FINDINGS: The bones soft tissues and hemidiaphragms are normal. The cardiomediastinal silhouette is normal. The lungs are clear. The pulmonary vasculature is normal. IMPRESSION: Negative chest. This appears to be consistent with URI. Patient is well-appearing. No pneumonia. He was not hypoxic. He was not retracting. He was advised to take medications as directed and to follow-up family care in a few days or here in the ER sooner for chest pain, difficulty breathing, fevers, worsening signs or symptoms or as needed. By the evaluation outlined above emergent etiologies such as otitis, pharyngitis, pneumonia, meningitis, urinary tract infection, sepsis, bacteremia, as well as others were deemed relatively unlikely. The pt informed about the findings as listed above. All questions were answered and pleased with the treatment. Return instructions were outlined and the patient was discharged in stable condition. Referral: The patient was referred back to their primary care physician for follow-up in 2 to 3 days for a recheck of the current condition. Case reviewed with my attending Medical Decision As above Impression Primary Impression: Upper respiratory infection Departure Information Prescriptions Lidocaine Hcl (Mouth-Throat) (LIDOCAINE VISCOUS) 2 % Deirdre 5 ML PO Q6H for 6 Days, #100 ML as needed for sore throat Prov: Delilah Hameed PA-C 10/14/16 Referrals Ana Paula Mccollum DO (PCP) Patient Instructions My [facility] Problem Qualifiers Primary Impression: Upper respiratory infection URI type: unspecified URI Qualified Codes: J06.9 - Acute upper respiratory infection, unspecified
[2016-10-14 01:19] VITALS: BP 139/74; PULSE 73; O2SAT 96
== END 2016-10-14 01:21 | disposition home or self-care (01) ==
LOC: C.EDB 21:30
DX: J06.9 Acute upper respiratory infection, unspecified (principal); Z79.82 Long term (current) use of aspirin; Z83.3 Family history of diabetes mellitus

== ENCOUNTER → 2016-10-25 | Outpatient (CLI) | payer BC ==
[~2016-10-25] MED LIST changes: -AMLO-114 PO; +ATOR-24 PO; -IMDSR30 PO; +ISOS30TA3 PO; +LEVO50TA6 PO; -LPT40 PO; +LSX40 PO; +MELO7.5T5 PO; +NRV/10 PO; +OXYC1TAB3 PO; +ROSU20TA22 PO
[2016-10-25 14:04] LABS: URINE TOTAL PROTEIN 377.1 mg/dl (0-11.9)
[2016-10-25 14:09] LABS: HEPATITIS B AB NEG
[2016-10-25 14:20] LABS: URINE TOTAL PROTEIN CALC 10181.7 mg/24 hr (0-149.1)
[2016-10-27 06:55] LABS: ALBUMIN % 55.23 %; ALPHA-2-GLOBULIN % 10.65 %; BETA GLOBULIN % 13.34 %; CREATININE UR 96 MG/DL (20-370); FREE KAPPA 162.5 MG/L (3.3-19.4); FREE KAPPA/LAMBDA RATIO 1.76 (0.26-1.65); FREE LAMBDA 92.4 MG/L (5.7-26.3); GAMMA GLOBULIN 1.4 G/DL (0.8-1.7); TOTAL PROTEIN 7.2 G/DL (6.2-8.3)
== END | disposition home or self-care (01) ==
LOC: C.LABSPEC 07:54
PROVIDERS: ATTEND Internal Medicine Nephrology
DX: N18.3 Chronic kidney disease, stage 3 (moderate) (principal); R80.9 Proteinuria, unspecified; N28.9 Disorder of kidney and ureter, unspecified

== ENCOUNTER → 2016-11-16 | Outpatient (CLI) | payer BC ==
[2016-11-16 13:26] LABS: BLOOD UREA NITROGEN 33 mg/dl (7-18); BUN/CREATININE RATIO 14.8 (10-20); CALCIUM 9.3 mg/dl (8.5-10.1); CARBON DIOXIDE 25 mmol/L (21-32); CHLORIDE 110 mmol/L (98-107); GLUCOSE 114 mg/dl (70-99); MAGNESIUM 2.1 mg/dl (1.8-2.4); POTASSIUM 5.4 mmol/L (3.5-5.1); SODIUM 141 mmol/L (136-145)
== END | disposition home or self-care (01) ==
LOC: C.LABPBG 07:50
PROVIDERS: ATTEND Internal Medicine Nephrology
DX: N28.9 Disorder of kidney and ureter, unspecified (principal)

== ENCOUNTER 2016-11-25 12:27 | Emergency (ER) | payer BC ==
[~2016-11-25] VITALS: Ht 180.3 cm; Wt 116.3 kg
[~2016-11-25 12:27] MED LIST changes: -LSX40 PO; -MELO7.5T5 PO; -NRV/10 PO; -OXYC1TAB3 PO; -ROSU20TA22 PO
[2016-11-25 12:32] VITALS: TEMP 36.3; Ht 180.3 cm; Wt 116.3 kg
[2016-11-25] MEDS ORDERED: KETOROLAC TROMETHAMINE 60 MG/2 ML VIAL IM STA (12:44)
[2016-11-25] MEDS ORDERED: LSX40 PO (12:53)
[2016-11-25] MEDS ORDERED: NRV/10 PO (12:53)
[2016-11-25] MEDS ORDERED: ROSU20TA22 PO (12:53)
--- NOTE | 2016-11-25 13:08 | DIAGNOSTIC IMAGING REPORT ---
LEFT KNEE 1 OR 2 VIEWS ROUTINE CLINICAL HISTORY: Left knee pain COMPARISON: None. DISCUSSION: There is chondrocalcinosis. There are no acute fractures. There are degenerative changes. There are tiny dorsal patellar spurs. There is a small joint effusion. IMPRESSION: 1. No acute fractures 2. Mild degenerative change 3. Chondrocalcinosis 4. Small joint effusion Electronically signed by: Navin Land M.D. 11/25/2016 1:07 PM Dictated Date/Time: 11/25/2016 1:06 PM
--- NOTE | 2016-11-25 13:30 | EMERGENCY ROOM VISIT NOTE ---
ED Visit Note First contact with patient: 12:35 CHIEF COMPLAINT: Left knee pain HISTORY OF PRESENT ILLNESS: This 61-year-old male presents the ER with chief complaint of worsening left knee pain. The patient denies any known initial injury. He has had pain for the past month. The patient denies any giving out or locking of the knee although he states it does feel like it is going to give out intermittently. The patient has an appointment with Dr. Esquivel on Monday but states he could not take the pain. The patient is currently taking tramadol 100 mg either twice or 3 times a day. He also admits to taking small amounts of ibuprofen. The patient denies any prior left knee surgery. He has seen Dr. Esquivel in the past for his right knee. REVIEW OF SYSTEMS: 6 system review was performed and was negative unless stated otherwise in history of present illness. PMH: See chronic problem list SOCIAL HISTORY: Patient lives with his family PHYSICAL EXAM: Vital Signs: Were reviewed Reviewed Nurse's notes. GENERAL: 61- year-old white male appears in no acute distress. MENTAL STATUS: Alert, oriented, and cooperative. LEFT KNEE: No gross bony deformity noted. The patient is tender to palpation over both the medial and lateral joint spaces as well as in the infrapatellar region. He has full range of motion with pain elicited with complete flexion and complete extension. No ligament instability noted. EMERGENCY DEPARTMENT COURSE: The patient was evaluated. The patient was given Toradol 60 mg IM for pain. X-ray of the left knee was ordered interpreted by the radiologist and myself. DIAGNOSTICS:LEFT KNEE 1 OR 2 VIEWS ROUTINE CLINICAL HISTORY: Left knee pain COMPARISON: None. DISCUSSION: There is chondrocalcinosis. There are no acute fractures. There are degenerative changes. There are tiny dorsal patellar spurs. There is a small joint effusion. IMPRESSION: 1. No acute fractures 2. Mild degenerative change 3. Chondrocalcinosis 4. Small joint effusion Electronically signed by: Navin Land M.D. 11/25/2016 1:07 PM The patient was informed of the findings. The patient stated that he has a walker and a cane at home that he continues to aid in ambulation. The patient was discharged home in stable condition. DIAGNOSIS: Left knee pain DISCHARGE INSTRUCTIONS: Use cane or walker to aid in ambulation. Limit strenuous activity until evaluated by Dr. Esquivel. Keep leg elevated whenever possible. Continue tramadol 100 mg 3 times a day. Take Modic in addition to the tramadol but do not take any additional ibuprofen. Keep scheduled appointment with Dr. Esquivel on Monday for definitive care. Current/Historical Medications Scheduled Amlodipine Besylate (Amlodipine Besylate), 10 MG PO DAILY Aspirin (Aspirin Chewable), 81 MG PO QAM Atorvastatin (Lipitor), 40 MG PO DAILY Carvedilol (Coreg), 25 MG PO BID Furosemide (Furosemide), 40 MG PO BID Insulin Glargine (Lantus), 40 UNITS SC AMPM Insulin Lispro (Human) (Humalog Kwikpen), 4-6 UNITS SQ AMPM Isosorbide Mononitrate Ext Rel (Imdur Ext Rel), 30 MG PO QAM Levothyroxine Sodium (Levothyroxine Sodium), 1 TAB PO DAILY Rosuvastatin Calcium (Rosuvastatin Calcium), 20 MG PO DAILY Scheduled PRN Tramadol (Ultram), 100 MG PO BID PRN for Pain Allergies Coded Allergies: No Known Allergies (Unverified , 09/05/16) Vital Signs Date Time Temp Pulse Resp B/P (MAP) Pulse Ox O2 Delivery O2 Flow Rate FiO2 11/25/16 12:32 36.3 74 20 131/70 93 Room Air Medications Administered Medications (Trade) Dose Ordered Sig/Kushal Route Start Time Stop Time Status Last Admin Dose Admin Ketorolac Tromethamine (Toradol Inj) 60 mg NOW STAT IM 11/25/16 12:44 11/25/16 12:46 DC 11/25/16 13:04 60 MG Departure Information Referrals Ana Paula Mccollum DO (PCP) Patient Instructions My [facility]
[2016-11-25] MEDS ORDERED: MELO7.5T5 PO (13:32)
[2016-11-25 13:46] VITALS: BP 123/63; PULSE 63; O2SAT 94
== END 2016-11-25 13:47 | disposition home or self-care (01) ==
LOC: C.EDB 12:29 → C.EDD 13:47
DX: M25.562 Pain in left knee (principal); Z79.82 Long term (current) use of aspirin; Z79.4 Long term (current) use of insulin; Z79.899 Other long term (current) drug therapy

== ENCOUNTER → 2016-11-28 | Outpatient (CLI) | payer BC ==
[~2016-11-28] MED LIST changes: +LSX40 PO; +MELO7.5T5 PO; +NRV/10 PO; +OXYC1TAB3 PO; +ROSU20TA22 PO
[2016-11-28 13:09] LABS: SYNOVIAL FLUID APPEARANCE BLOODY; SYNOVIAL FLUID COLOR RED; SYNOVIAL FLUID MONONUC RELAT 16.7 %; SYNOVIAL FLUID POLYNUC RELAT 83.3 %
== END | disposition home or self-care (01) ==
LOC: C.LAB 12:09
PROVIDERS: ATTEND Physician Assistant
DX: M25.462 Effusion, left knee (principal)

== ENCOUNTER → 2016-12-01 | Outpatient (CLI) | payer BC ==
[~2016-12-01] MED LIST changes: -OXYC1TAB3 PO
[2016-12-01 12:50] LABS: BLOOD UREA NITROGEN 68 mg/dl (7-18); BUN/CREATININE RATIO 27.2 (10-20); CALCIUM 9.5 mg/dl (8.5-10.1); CARBON DIOXIDE 24 mmol/L (21-32); CHLORIDE 106 mmol/L (98-107); GLUCOSE 235 mg/dl (70-99); MAGNESIUM 2.1 mg/dl (1.8-2.4); PHOSPHORUS 4.3 mg/dl (2.5-4.9); SODIUM 138 mmol/L (136-145)
== END | disposition home or self-care (01) ==
LOC: C.LABPBG 08:44
PROVIDERS: ATTEND Internal Medicine Nephrology
DX: N18.3 Chronic kidney disease, stage 3 (moderate) (principal)

== ENCOUNTER 2017-01-02 18:30 | Emergency (ER) | payer BC ==
[~2017-01-02] VITALS: Ht 180.3 cm; Wt 120.0 kg
[~2017-01-02 18:30] MED LIST changes: -MELO7.5T5 PO
[2017-01-02 18:33] VITALS: TEMP 36.9; Ht 180.3 cm; Wt 120.0 kg
[2017-01-02] MEDS ORDERED: OXYCODONE HCL IR 5 MG TAB (IMMEDIATE RELEASE) PO STA (18:46)
[2017-01-02] MEDS ORDERED: OXYC1TAB3 PO (19:17)
--- NOTE | 2017-01-02 19:27 | EMERGENCY ROOM VISIT NOTE ---
ED Visit Note First contact with patient: 18:38 CHIEF COMPLAINT: Left knee pain HISTORY OF PRESENT ILLNESS: This 61-year-old male presents the ER with chief complaint of worsening left knee pain. The patient was seen here on November 25 for his knee pain. The patient states that he then followed up with Dr. Esquivel's PA who gave him a steroid injection. He also has been on tramadol for his peripheral neuropathy pain but states that was not touching his left knee pain. He is currently out of his tramadol. The patient has an appointment on January [address] Esquivel this time. The patient states that he gets sharp pains in his knee that it feels like it is going to give out. REVIEW OF SYSTEMS: 6 system review was performed and was negative unless stated otherwise in history of present illness. PMH: The patient is healthy; see chronic problem list. This was reviewed and there are no changes from prior ER visit. SOCIAL HISTORY: Patient lives with his . PHYSICAL EXAM: Vital Signs: Were reviewed Reviewed Nurse's notes. GENERAL: 61- year-old white male appears in no acute distress. MENTAL STATUS: Alert, oriented, and cooperative. LEFT KNEE: No gross bony deformity noted. No erythema or edema noted .the patient is tender to palpation over the inferior aspect of the patella and over the medial joint space. There is no joint effusion. The range of motion is limited secondary to pain. There is no ligamentous instability. EMERGENCY DEPARTMENT COURSE: The patient was evaluated. The prescription drug monitoring program was accessed and the patient does not have a current prescription for tramadol. The patient was given OxyIR 10 mg by mouth. The patient was reevaluated and was feeling better. The patient was discharged home with his driving. DIAGNOSIS: Left knee pain DISCHARGE INSTRUCTIONS:Take oxycodone as needed for pain. Do not drive while taking the oxycodone. Continue using walker to aid in ambulation. Keep scheduled appointment with Dr. Esquivel on Monday. Current/Historical Medications Scheduled Amlodipine Besylate (Amlodipine Besylate), 10 MG PO DAILY Aspirin (Aspirin Chewable), 81 MG PO QAM Atorvastatin (Lipitor), 40 MG PO DAILY Carvedilol (Coreg), 25 MG PO BID Furosemide (Furosemide), 40 MG PO BID Insulin Glargine (Lantus), 40 UNITS SC AMPM Insulin Lispro (Human) (Humalog Kwikpen), 4-6 UNITS SQ AMPM Isosorbide Mononitrate Ext Rel (Imdur Ext Rel), 30 MG PO QAM Levothyroxine Sodium (Levothyroxine Sodium), 1 TAB PO DAILY Rosuvastatin Calcium (Rosuvastatin Calcium), 20 MG PO DAILY Scheduled PRN Oxycodone Immediate Rel Tab (Roxicodone Ir), 1-2 TAB PO Q4H PRN for Pain Tramadol (Ultram), 100 MG PO BID PRN for Pain Allergies Coded Allergies: No Known Allergies (Unverified , 09/05/16) Vital Signs Date Time Temp Pulse Resp B/P (MAP) Pulse Ox O2 Delivery O2 Flow Rate FiO2 01/02/17 18:33 36.9 90 20 168/83 96 Room Air Medications Administered Medications (Trade) Dose Ordered Sig/Kushal Route Start Time Stop Time Status Last Admin Dose Admin Oxycodone HCl (Roxicodone Immediate Rel Tab) 10 mg NOW STAT PO 01/02/17 18:46 01/02/17 18:47 DC 01/02/17 18:53 10 MG Departure Information Prescriptions Oxycodone Immediate Rel Tab (ROXICODONE IR) 5 Mg Tab 1-2 TAB PO Q4H Y for Pain, #30 TAB Prov: Liss Paris PATrey 01/02/17 Referrals Ana Paula Mccollum DO (PCP) Patient Instructions [facility]
[2017-01-02 19:42] VITALS: BP 172/90; PULSE 80; O2SAT 95
== END 2017-01-02 19:42 | disposition home or self-care (01) ==
LOC: C.EDB 18:31 → C.EDD 19:42
DX: M25.562 Pain in left knee (principal); Z79.82 Long term (current) use of aspirin; Z79.4 Long term (current) use of insulin; Z79.899 Other long term (current) drug therapy

== ENCOUNTER → 2017-01-13 | Outpatient (CLI) | payer BC ==
[~2017-01-13] MED LIST changes: +OXYC1TAB3 PO
[2017-01-13 12:19] LABS: BASO % 0.3 %; BASO ABS # 0.04 K/uL (0-0.2); COMPLETE YES; EOS % 4.5 %; HEMATOCRIT 34.8 % (42-52); IG% 0.3 %; LYMPH % 11.4 %; LYMPH ABS # 1.35 K/uL (1.2-3.4); MEAN CELL VOLUME 98.3 fL (80-100); MEAN CORPUSCULAR HEMOGLOBIN 32.5 pg (25-34); MEAN PLATELET VOLUME 9.6 fL (7.4-10.4); NEUT % 75.5 %; PLATELET COUNT 472 K/uL (130-400); RED BLOOD COUNT 3.54 M/uL (4.7-6.1); WHITE BLOOD COUNT 11.89 K/uL (4.8-10.8)
[2017-01-13 12:30] LABS: PROTHROMBIN TIME (PATIENT) 10.3 SECONDS (9.0-12.0)
[2017-01-13 12:41] LABS: ALT/SGPT 16 U/L (12-78); AST/SGOT 11 U/L (15-37); BLOOD UREA NITROGEN 42 mg/dl (7-18); BUN/CREATININE RATIO 18.2 (10-20); CALCIUM 9.3 mg/dl (8.5-10.1); CARBON DIOXIDE 27 mmol/L (21-32); CHLORIDE 106 mmol/L (98-107); GLUCOSE 171 mg/dl (70-99); POTASSIUM 5.1 mmol/L (3.5-5.1); SODIUM 138 mmol/L (136-145)
[2017-01-13 12:44] LABS: ALB/GLOB RATIO 0.6 (0.9-2); ALKALINE PHOSPHATASE 139 U/L (45-117); PHOSPHORUS 3.9 mg/dl (2.5-4.9)
[2017-01-13 12:46] LABS: URINE PROTIEN/CREAT RATIO 5.3 (0-0.2); URINE TOTAL PROTEIN 846.8 mg/dl (0-11.9)
[2017-01-13 12:47] LABS: ESTIMATED AVERAGE GLUCOSE 203 mg/dl; HA1C FLAG Normal (Normal); URINE APPEARANCE CLEAR (CLEAR); URINE BILIRUBIN NEG (NEG); URINE COLOR YELLOW; URINE EPITHELIAL CELL AUTO >30 /lpf (0-5); URINE NITRITE NEG (NEG); URINE PH 5.5 (4.5-7.5); URINE SPECIFIC GRAVITY 1.022 (1.000-1.030); UROBILINOGEN NEG (NEG); ZZUR CULT IF INDIC CLEAN CATCH NO
[2017-01-13 12:51] LABS: MANUAL MICROSCOPIC REQUIRED? NO; REVIEW REQ? NO
[2017-01-13 12:53] LABS: CHOLESTEROL/HDL RATIO 3.1; THYROID STIMULATING HORMONE 4.42 uIu/ml (0.300-4.500)
== END | disposition home or self-care (01) ==
LOC: C.LABPBG 09:38
PROVIDERS: ATTEND Family Medicine
DX: Z01.818 Encounter for other preprocedural examination (principal); N18.3 Chronic kidney disease, stage 3 (moderate); E11.9 Type 2 diabetes mellitus without complications

== ENCOUNTER → 2017-01-17 | Outpatient (CLI) | payer BC ==
[2017-01-17 17:47] LABS: BASO % 0.5 %; BASO ABS # 0.05 K/uL (0-0.2); COMPLETE YES; EOS % 8.4 %; HEMATOCRIT 33.5 % (42-52); IG% 0.2 %; LYMPH % 20.4 %; LYMPH ABS # 1.88 K/uL (1.2-3.4); MEAN CELL VOLUME 98.5 fL (80-100); MEAN CORPUSCULAR HEMOGLOBIN 31.5 pg (25-34); MEAN CORPUSCULAR HGB CONC 31.9 g/dl (32-36); MEAN PLATELET VOLUME 9.6 fL (7.4-10.4); MONO % 10.1 %; NEUT % 60.4 %; PLATELET COUNT 426 K/uL (130-400)
== END | disposition home or self-care (01) ==
LOC: C.LABPBG 15:04
PROVIDERS: ATTEND Family Medicine
DX: D64.9 Anemia, unspecified (principal)

== ENCOUNTER → 2017-01-27 | Outpatient (CLI) | payer BC ==
[2017-01-27 12:23] LABS: BASO % 0.3 %; BASO ABS # 0.03 K/uL (0-0.2); COMPLETE YES; EOS % 6.6 %; HEMATOCRIT 34.8 % (42-52); IG% 0.3 %; LYMPH % 14.3 %; LYMPH ABS # 1.62 K/uL (1.2-3.4); MEAN CELL VOLUME 99.4 fL (80-100); MEAN CORPUSCULAR HEMOGLOBIN 29.7 pg (25-34); MEAN CORPUSCULAR HGB CONC 29.9 g/dl (32-36); MEAN PLATELET VOLUME 9.5 fL (7.4-10.4); MONO % 6.9 %; NEUT % 71.6 %; PLATELET COUNT 460 K/uL (130-400); WHITE BLOOD COUNT 11.35 K/uL (4.8-10.8)
[2017-01-27 13:25] LABS: FERRITIN 127.6 ng/ml (8.0-388.0)
== END | disposition home or self-care (01) ==
LOC: C.LABPBG 09:41
PROVIDERS: ATTEND Family Medicine
DX: D64.9 Anemia, unspecified (principal)

== ENCOUNTER → 2017-03-03 | Outpatient (CLI) | payer BC ==
[2017-03-03 11:27] LABS: BASO % 0.4 %; BASO ABS # 0.04 K/uL (0-0.2); COMPLETE YES; HEMATOCRIT 35.6 % (42-52); IG% 0.1 %; LYMPH % 23.4 %; MEAN CELL VOLUME 98.1 fL (80-100); MEAN CORPUSCULAR HEMOGLOBIN 30.3 pg (25-34); MEAN CORPUSCULAR HGB CONC 30.9 g/dl (32-36); MEAN PLATELET VOLUME 9.6 fL (7.4-10.4); MONO % 7.3 %; NEUT % 60.8 %; PLATELET COUNT 437 K/uL (130-400); RED BLOOD COUNT 3.63 M/uL (4.7-6.1); WHITE BLOOD COUNT 9.84 K/uL (4.8-10.8)
[2017-03-03 11:54] LABS: URINE APPEARANCE CLEAR (CLEAR); URINE BILIRUBIN NEG (NEG); URINE COLOR YELLOW; URINE NITRITE NEG (NEG); URINE SPECIFIC GRAVITY 1.016 (1.000-1.030); UROBILINOGEN NEG (NEG); ZZUR CULT IF INDIC CLEAN CATCH NO
[2017-03-03 11:56] LABS: MANUAL MICROSCOPIC REQUIRED? NO; REVIEW REQ? NO
[2017-03-03 12:07] LABS: URINE PROTIEN/CREAT RATIO 7.4 (0-0.2); URINE TOTAL PROTEIN 508.9 mg/dl (0-11.9)
[2017-03-03 12:29] LABS: BLOOD UREA NITROGEN 34 mg/dl (7-18); BUN/CREATININE RATIO 18.7 (10-20); CALCIUM 8.8 mg/dl (8.5-10.1); CARBON DIOXIDE 25 mmol/L (21-32); CHLORIDE 108 mmol/L (98-107); GLUCOSE 111 mg/dl (70-99); MAGNESIUM 2.1 mg/dl (1.8-2.4); PHOSPHORUS 4.5 mg/dl (2.5-4.9); POTASSIUM 4.6 mmol/L (3.5-5.1); SODIUM 139 mmol/L (136-145)
== END | disposition home or self-care (01) ==
LOC: C.LABPBG 07:18
PROVIDERS: ATTEND Internal Medicine Nephrology
DX: N18.3 Chronic kidney disease, stage 3 (moderate) (principal); D64.9 Anemia, unspecified

== ENCOUNTER → 2017-07-27 | Outpatient (CLI) | payer BC ==
[~2017-07-27] MED LIST changes: -OXYC1TAB3 PO; -ROSU20TA22 PO; +ROSU20TA33 PO
[2017-07-27 12:40] LABS: BASO % 0.3 %; BASO ABS # 0.03 K/uL (0-0.2); EOS % 5.4 %; HEMATOCRIT 32.3 % (42-52); HEMOGLOBIN 10.1 g/dL (14.0-18.0); IG# 0.03 K/uL (0.00-0.02); LYMPH % 12.8 %; LYMPH ABS # 1.18 K/uL (1.2-3.4); MEAN CELL VOLUME 98.2 fL (80-100); MEAN CORPUSCULAR HEMOGLOBIN 30.7 pg (25-34); MEAN CORPUSCULAR HGB CONC 31.3 g/dl (32-36); MEAN PLATELET VOLUME 9.3 fL (7.4-10.4); MONO ABS # 0.65 K/uL (0.11-0.59); NEUT % 74.2 %; NEUT ABS # 6.85 K/uL (1.4-6.5); PLATELET COUNT 478 K/uL (130-400); RED CELL DISTRIBUTION WIDTH CV 14.1 % (11.5-14.5); RED CELL DISTRIBUTION WIDTH SD 50.9 fL (36.4-46.3); WHITE BLOOD COUNT 9.24 K/uL (4.8-10.8)
[2017-07-27 14:11] LABS: HEMOGLOBIN A1C 7.3 % (4.5-5.6)
[2017-07-27 15:55] LABS: ALBUMIN 2.2 gm/dl (3.4-5.0); BLOOD UREA NITROGEN 30 mg/dl (7-18); CALCIUM 8.7 mg/dl (8.5-10.1); CARBON DIOXIDE 23 mmol/L (21-32); CREATININE 2.15 mg/dl (0.60-1.40); GLUCOSE 115 mg/dl (70-99); SODIUM 138 mmol/L (136-145)
== END | disposition home or self-care (01) ==
LOC: C.LABPBG 08:28
PROVIDERS: ATTEND Internal Medicine Nephrology
DX: I12.9 Hypertensive chronic kidney disease with stage 1 through stage 4 chronic kidney disease, or unspecified chronic kidney disease (principal); E11.22 Type 2 diabetes mellitus with diabetic chronic kidney disease; N18.3 Chronic kidney disease, stage 3 (moderate); R80.9 Proteinuria, unspecified